=== PATIENT | female | born 1965 | race Caucasian/White ===

== ENCOUNTER 2025-06-26 12:54 | Outpatient (CLI) | payer OTHER, SELFPAY ==
--- OUTSIDE RECORDS SUMMARY | 2025-06-26 13:08 | XMS_ITS | Encounter Summary ---
Author Organization [facility] Address [address] [place] [address] Care Team Providers Care Negative Developer Name Role Phone Yadira Baptiste MD Primary Care Provider [phone] Encounter Details Date Type Department Care Team (Latest Contact Info) Description 01/02/2009 Outpatient Historical [facility] Dieudonne Colon MD [address] [place] [address] Cholecystitis, Unspecified Social History Tobacco Use Types Packs/Day Years Used Date Smoking Tobacco: Never Assessed Comments Unknown Sex and Gender Information Value Date Recorded Sex Assigned at Not on file Legal Sex Female 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 CARETAKER Gender Identity Not on file Sexual Orientation Not on file documented as of this encounter Plan of Treatment Upcoming Encounters Date Type Department Care Team (Late st Contact Info) Description 07/25/2025 1:00 PM CDT Appointment [facility] Laboratory Services [facility] [address] [place] [address] 07/25/2025 2:00 PM CDT Office Visit [facility] Oncology and Hematology [address] [place] [place] [address] Ramesh Dumas MD [address] [place] [address] documented as of this encounter Procedures Procedure Name Priority Date/Time Associated Diagnosis Comments PATHOLOGY Routine 01/03/2009 9:46 AM CAMPGROUND CARETAKER POC GLUCOSE Routine 01/03/2009 7:05 AM CAMPGROUND CARETAKER documented in this encounter Results * PATHOLOGY (01/03/2009 9:46 AM CAMPGROUND CARETAKER) FINAL REPORT [facility] [address] [place], [place] [address] Patient: RANDY LANDIS : 1965 Procedure Date: 01/03/2009 Accession Date: 01/03/2009 Case No: [id number] Ordering Dr: DIEUDONNE COLON Case types AW, BW, FW, NW and SH are performed by [facility] [place] [place], [place] SURGICAL PATHOLOGY & NON-GYNECOLOGIC CYTOPATHOLOGY REPORT DIAGNOSIS GALLBLADDER, LAPAROSCOPIC CHOLECYSTECTOMY: - LITHIASIS. - CHRONIC INFLAMMATION AND REACTIVE CHANGES. - CHOLESTEROLOSIS. Specimen Description: Gallbladder. Operative Procedure: Laparoscopic cholecystectomy. Patient Information/Histor y/Diagnosis: Biliary colic with gallstones. Gross: Received in a single container labeled Randy Landis., gallbladder is a 6.0 x 3.0 x 1.2-cm intact gallbladder with a cystic duct that is 0.2 cm in diameter. The serosa is blanco-pink and unremarkable. The lumen contains a 0.7 x 0.5 x 0.3-cm dark brown cholelith. The mucosa is blanco and velvety with diffuse yellow granularity. The wall is friable and averages 0.[address] Sql Developer sections, including the cystic duct margins, are submitted in cassette A1. LWL/PJS 01.04.2009 05:46 am Microscopic: Received are slides labeled [id number]. The gallbladder epithelium is intact and mildly reactive in appearance. Cholesterolosis is present. There are patchy, subepithelial infiltrates of chronic inflammatory cells. Foci of subepithelial fibrosis are also noted. BRIDGER/LONI 01.04.2009 02:05 pm Staging Form: No. ELECTRONIC SIGNATURE FOR OTONIEL VÁZQUEZ M.D.- 01/04/09 03:46 pm INTERFACE SYSTEM 01/03/2009 9:46 AM CAMPGROUND CARETAKER us Dieudonne Colon MD PATHOLOGY/CYTOLOGY ORDERABLES Fi nal Result Performing Organization Address [facility] de Phone Number INTERFACE SYSTEM Refer to clinic/hospital department * (ABNORMAL) POC GLUCOSE (01/03/2009 7:05 AM CAMPGROUND CARETAKER) GLUCOSE POC 140(H) 65 - 99 mg/dL [facility] Venous blood specimen (specimen) 01/03/2009 7:05 AM CAMPGROUND CARETAKER 01/03/2009 7:05 AM CAMPGROUND CARETAKER Dieudonne Colon MD POINT OF CARE TESTING Final Resu lt Performing Organization Address [facility] de Phone Number INTERFACE SYSTEM Refer to clinic/hospital department [facility] CLIA# [id number] [address] [place] [address] documented in this encounter Visit Diagnoses Diagnosis Cholecystitis, unspecified documented in this encounter Additional Health Concerns Infection Onset Date Last Indicated Resolved Time R/O GI Pathogen 05/30/2025 05/30/2025 05/30/2025 6 :07 PM CDT R/O C. diff 05/30/2025 05/30/2025 05/30/2025 2:03 PM CDT documented as of this encounter Care Teams Negative Developer Relationship Specialty Start Date End Date Yadira Baptiste MD [address] [place] [address] PCP - General Family Practice 05/30/25 documented as of this encounter
--- OUTSIDE RECORDS SUMMARY | 2025-06-26 13:08 | XMS_ITS | Encounter Summary ---
Author Organization [facility] Address [address] [place] [address] Care Team Providers Care Lead Injection Mold Technician Name Role Phone [place] Primary Care Provider [phone] Encounter Details Date Type Department Care Team (Late st Contact Info) Description 04/27/2015 Orders Only [facility] Radiology [address] [place] [address] System, Provider Not In, [address] [place] [address] Social History Tobacco Use Types Packs/Day Years Used Date Smoking Tobacco: Never Assessed Comments Unknown Sex and Gender Information Value Date Recorded Sex Assigned at Not on file Legal Sex Female 5:23 PM CDT Gender Identity Not on file Sexual Orientation Not on file documented as of this encounter Plan of Treatment Upcoming Encounters Date Type Department Care Team (Late st Contact Info) Description 08/21/2025 1:00 PM CDT Office Visit [facility] [address] [place] [address] Gila Hills FNP [address] [place] [address] documented as of this encounter Procedures Procedure Name Priority Date/Time Associated Diagnosis Comments OUTSIDE IMAGES 04/27/2015 8:18 AM CDT documented in this encounter Results * Outside Images (04/27/2015 8:18 AM CDT) Anatomical Region Laterality Modality N/A Radiographic Olinda ging 04/27/2015 8:18 AM CDT Narrative 04/27/2015 8:18 AM CDT Historic images from [facility] exist and can be viewed by using the hyperlink to access [facility] pacs: HIP R Procedure Note System, Provider Not In - 07/02/2019 Historic images from [facility] exist and can be viewed byusing the hyperlink to access [facility] pacs: HIP R us Provider Not In System MD [facility] Final Result documented in this encounter Visit Diagnoses Not on filedocumented in this encounter Care Teams Lead Injection Mold Technician Relationship Specialty Start Date End Date Gila Hills FNP [address] [place] [facility] [place] [address] PCP - General Family Medicine 06/17/19 documented as of this encounter
--- OUTSIDE RECORDS SUMMARY | 2025-06-26 13:08 | XMS_ITS | Encounter Summary ---
Author Organization [facility] Address [address] [place] [address] Care Team Providers Care Traffic Circuit Engineer Name Role Phone Gabriele Wyatt MD Primary Care Provider [phone] Teresa Vasquez MD Primary Care Provider [phone] Yadira Baptiste MD Primary Care Provider [phone] Encounter Details Date Type Department Care Team (Late st Contact Info) Description 10/30/2011 [facility] Visit [facility]TERNAL [facility] [place] [address] [place] [address] Social History Tobacco Use Types Packs/Day Years Used Date Smoking Tobacco: Never Smokeless Tobacco: Never Alcohol Use Standard Drinks/Week Comments Yes 0 (1 standard drink = 0.6 oz pur e alcohol) Rare Comments No Sex and Gender Information Value Date Recorded Sex Assigned at Not on file Legal Sex Female 11:33 AM AUTO DAMAGE TRAINEE Gender Identity Not on file Sexual Orientation Not on file documented as of this encounter Plan of Treatment Not on file documented as of this encounter Visit Diagnoses Not on filedocumented in this encounter Additional Health Concerns Infection Onset Date Last Indicated Resolved Time C DIFF 06/16/2011 06/16/2011 12/14/2020 10:3 8 AM AUTO DAMAGE TRAINEE C Diff Hx 12/14/2020 12/14/2020 documented as of this encounter Care Teams Traffic Circuit Engineer Relationship Specialty Start Date End Date Gabriele Wyatt MD [address] [address] PCP - General 11/18/10 08/25/16 Teresa Vasquez MD [address] [facility], [id number] PCP - General Family Medicine 08/26/16 11/25/20 Yadira Baptiste MD [address] [place] [address] PCP - General Family Medicine 11/26/20 documented as of this encounter
--- OUTSIDE RECORDS SUMMARY | 2025-06-26 13:08 | XMS_ITS | Clinical Summary ---
Author Organization [facility] Address [address] [place] [address] Care Team Providers Care Act Tutor Name Role Phone Yadira Baptiste MD Primary Care Provider [phone] Source Comments [facility],non-owned Affiliates and Associated Physician Practices is amultiple site organization consisting of ambulatory clinics and hospital sitesin [place], [place], [place] and [place]. This disclosure is being madepursuant to the Care Everywhere program and may not contain all information available regarding this patient. Last updated 18.[facility] Allergies Active Allergy Reactions Criticality Noted Date Comments Adhesive Sensitivity Rash 05/02/2010 Plastic tape/ Paper tape is OK [place] Diarrhea 05/02/2010 Doxycycline Nausea and/or Vomiting 12/31/2018 Exenatide Diarrhea 05/02/2010 Loperamide Hcl Rash Low 06/13/2011 Pt stated that imodium gave her burning rash lower abdomen. Sitagliptin Phosphate Diarrhea 05/02/2010 Loperamide Hcl Rash Medium 06/13/2011 Pt stated that imodium gave her burning rash lower abdomen. Metformin Diarrhea 05/02/2010 Sitagliptin Diarrhea 05/02/2010 Tramadol Dizziness 10/11/2019 Medications * Be aware that medications may not be up to date on this document. Alwaysverify current medications with the patient. Cholecalciferol (VITAMIN D) 1000 UNIT capsule Take 1,000 Units by mouth once daily. Active acetaminophen (TYLENOL) 325 MG tablet Take 2 Tabs by mouth every 4 hours as needed for Pain. Maximum allowable Acetaminophen amount = 4 Grams (4000 mg) / 24 hours. 200 1 Active PATADAY 0.2 % ophthalmic solution once daily 6 Active Collagen Hydrolysate POWD Use once daily Activ e fluticasone propionate (FLONASE) 50 MCG/ACT nasal spray 1 Active levothyroxine (SYNTHROID) 175 MCG tablet 1 Active spironolactone (ALDACTONE) 25 MG tablet 1 Active Collagen Hydrolysate POWD Active multivitamin daily tablet Take 1 tablet by mouth daily with food Active acetaminophen (TYLENOL) 325 MG tablet Take 2 (two) tablets by mouth every 6 hours as needed for Pain Maximum allowable Acetaminophen amount = 4 Grams (4000 mg) / 24 hours. 30 tablet 1 Active ibuprofen (MOTRIN) 600 MG tablet Take 1 (one) tablet by mouth every 6 hours as needed for Pain 30 tablet 1 Active oxyCODONE, immediate release, (ROXICODONE) 5 MG tablet Take 1 (one) tablet by mouth every 6 hours as needed for Pain 12 tablet 1 Active senna-docusate (SENOKOT-S) 8.6-50 MG tablet Take 1 (one) tablet by mouth 2 times daily as needed for Constipation 30 tablet 1 Active Active Problems Problem Noted Date Diagnosed Date Clostridium difficile diarrhea 06/13/2011 Preoperative examination 10/22/2010 Morbid obesity 10/15/2010 Preop testing 10/15/2010 Type II or unspecified type diabetes mellitus without mention of complication, not stated as uncontrolled 10/15/2010 Hypercholesterolemia 10/15/2010 [place] (dyspnea on exertion) 10/15/2010 Pain in joint, multiple sites 10/15/2010 Hypothyroidism 10/15/2010 Immunizations Immunization Administration Dates Next Due INFLUENZA VACCINE 10/24/2010 Family History Medical History Relation Name Comments Cancer Father Diabetes Father Hypercholesterolemia Father Hypertension Father Relation Name Status Comments Father Social History Tobacco Use Types Packs/Day Years Used Date Smoking Tobacco: Never Smokeless Tobacco: Never Alcohol Use Standard Drinks/Week Comments Yes 0 (1 standard drink = 0.6 oz pur e alcohol) Rare Comments No Sex and Gender Information Value Date Recorded Sex Assigned at Not on file Legal Sex Female 11:33 AM FINANCIAL 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 Gender Identity Not on file Sexual Orientation Not on file 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 Not on file Not on file Last Filed Vital Signs Vital Sign Reading Time Taken Comments Blood Pressure 110/60 12/27/2020 9:02 AM FINANCIAL SECRETARY Pulse 52 12/27/2020 9:02 AM FINANCIAL SECRETARY Temperature 35.8 C (96.5 F) 12/27/2020 9:02 AM FINANCIAL SECRETARY Respiratory Rate 14 12/14/2020 9:26 AM FINANCIAL SECRETARY Oxygen Saturation 98% 12/27/2020 9:02 AM FINANCIAL SECRETARY Inhaled Oxygen Concentration - - Weight 93.9 kg (207 lb) 12/27/2020 9:02 AM FINANCIAL SECRETARY Height 172.7 cm (5' 8) 12/14/2020 5:59 AM FINANCIAL SECRETARY Body Mass Index 31.47 12/14/2020 5:59 AM FINANCIAL SECRETARY Plan of Treatment Health Maintenance Due Date Last Done Comments COLOGUARD (AGES 45-75) - COLON CA SCREENING 1964 COLON MONITORING 1964 COLONOSCOPY - COLON CA SCREENING 1964 CT COLONOGRAPHY - COLON CA SCREENING 1964 Colorectal Cancer Screening 1964 FIT - COLON CA SCREENING 1964 FLEX SIG - COLON CA SCREENING 1964 MAMMOGRAM 1964 HIV SCREENING 02/20/1979 HEPATITIS C SCREENING 02/16/1982 DTAP/TDAP/TD VACCINES (1 - Tdap) 02/20/1983 DIABETES-STATIN 2004 DIABETES-SERUM CREATININE 06/13/20122010, 06/12/2011, 12/31/2010, Additional history exists PNEUMOCOCCAL VACCINE 50+ (1 of 1 - PCV) 02/20/2014 ZOSTER VACCINE (1 of 2) 02/20/2014 DIABETES-FOOT EXAM WITH MONOFILAMENT 11/26/2020 DIABETES-HGB A1C 11/26/2020 COVID-19 VACCINE (1 - season) 2024 DEPRESSION SCREENING 11/02/2024 DIABETES - URINE PROTEIN SCREENING 11/02/2024 INFLUENZA VACCINE (#1) 2025 10/24/2010 Respiratory Syncytial Virus (RSV) Vaccine Pt: or over 60 yrs (1 - 1-dose 75+ series) 02/20/2039 HEPATITIS B VACCINE Aged Out No longe r eligible based on patient's age to complete this topic HIB VACCINE Aged Out No longer eligi ble based on patient's age to complete this topic HPV VACCINE Aged Out No longer eligi ble based on patient's age to complete this topic MENINGOCOCCAL (Group B) VACCINE SHARED DECISION-MAKING Aged Out No longer eligible based on patient's age to complete this topic MENINGOCOCCAL GROUPS A/C/Y/W VACCINE Aged Out No longer eligible based on patient's age to complete this topic Procedures Procedure Name Priority Date/Time Associated Diagnosis Comments BASIC METABOLIC PANEL (CALCIUM TOTAL) Routine 06/13/2011 4:45 AM CDT from Last 3 Months or Most Recently Relevant to Health Maintenance Results * (ABNORMAL) BASIC METABOLIC PANEL (CALCIUM TOTAL) (06/13/2011 4:45 AM CDT) BUN 10 7.0 - 17.0 mg/dl [facility] Sodium 138 137 - 145 mmol/L [facility] Potassium 3.8 3.6 - 5.0 mmol/L [facility] Chloride 109(H) 98.0 - 107.0 mmol/L [facility] CO2 26 22.0 - 30.0 mEq/L [facility] Anion Gap 3.3 [facility] Glucose 72 70 - 105 mg/dl [facility] Creatinine 0.5(L) 0.52 - 1.05 mg/dl [facility] Calcium 8.1(DL) 8.4 - 10.2 mg/dl [facility] eGFR by MDRD 132.25 mL/min/1.7 3m2 [facility] BLOOD SPECIMEN / Unknown 06/13/2011 4:45 AM CDT 06/13/2011 5:25 AM CDT us Aiden Kapoor DO LAB - CHEMISTRY ORDERABLES Final Result [facility] [address] [place] [address] from Last 3 Months or Most Recently Relevant to Health Maintenance Additional Health Concerns Infection Onset Date Last Indicated C Diff Hx 12/14/2020 12/14/2020 Insurance [facility] Address: [facility] [address] [place] [address] Advance Directives * FULL RESUSCITATION (Latest Code Status on File) Date Activated Date Inactivated Comments 06/12/2011 4:00 PM 06/15/2011 1:29 AM * Full Code Date Activated Date Inactivated Comments 10/22/2010 5:23 PM 10/25/2010 11:15 PM Care Teams Act Tutor Relationship Specialty Start Date End Date Yadira Baptiste MD [address] [place] [address] PCP - General Family Medicine 11/26/20
--- OUTSIDE RECORDS SUMMARY | 2025-06-26 13:08 | XMS_ITS | Clinical Summary ---
Author Organization [facility] Address [address] [facility] [address] [place] [address] Phone Care Team Providers Care Division Operations Manager Name Role Phone Yadira Baptiste MD Primary Care Provider [phone] Allergies Active Allergy Reactions Criticality Noted Date Comments Adhesive Hives High 05/02/2010 Plastic tape/ Paper tape is OK Adhesive Tape-Silicones Unknown 09/06/2024 Doxycycline Nausea and Vomiting Low 12/31/2018 Exenatide Diarrhea Low 05/02/2010 Loperamide Hcl Rash Low 06/13/2011 Pt stated that imodium gave her burning rash lower abdomen. Macrolide Antibiotics Unknown 09/06/2024 Metformin Diarrhea Low 05/02/2010 Sitagliptin Phosphate Diarrhea Low 05/02/2010 Tramadol Dizziness Low 10/11/2019 Medications ergocalciferol (VITAMIN D2) 50,000 unit capsule Take 50,000 Units by mouth. 08/19/2024 Active estradioL (ESTRACE) 1 mg tablet Take 1.5 mg by mouth daily. 08/19/2024 Active levothyroxine 100 mcg tablet Take 100 mcg by mouth daily. 06/14/2024 Active montelukast (SINGULAIR) 10 mg tablet Take 10 mg by mouth daily at bedtime. Active multivitamins with minerals (Daily Multivitamin-Mi nerals) Tablet Take 1 Tablet by mouth daily. Active HYDROcodone-tamy taminophen (NORCO) 5-325 mg tabletIndicatio ns:Pelvic floor dysfunction,Acu te diarrhea Take 1 Tablet by mouth every 6 hours as needed for Pain. Max Daily Amount: 4 Tablets 12 Tablet 05/11/2025 Active phenazopyridine 200 mg tablet Take 1 Tablet (200 mg) by mouth 3 times daily as needed for Pain. 6 Tablet 05/11/2025 Active Active Problems Problem Noted Date Diagnosed Date Iron deficiency anemia ranjith royal to inadequate dietary iron intake 10/27/2024 Bariatric surgery status 09/14/2024 Irritable bowel syndrome wit h both constipation and diarrhea 05/04/2019 Hypothyroidism 10/15/2010 Resolved Problems Problem Noted Date Diagnosed Date Resolved Date Wasp sting 07/03/2024 09/06/2024 Contact dermatitis due to poison ady 02/22/2024 09/06/2024 Overview (09/06/2024): Kenalog 40mg IM x1 here Tapering dose of prednisone to start tomorrow Zyrtec AM. Benadryl PM Avoid scratching Return if symptoms do not improve Exposure to 2018 novel coronavirus 12/10/2020 09/06/2024 Acute non intractable tension-type headache 05/04/2019 09/06/2024 Elevated hemoglobin 05/04/2019 09/06/20 24 Hypervitaminosis 05/04/2019 09/06/2024 Encounters Date Type Department Care Team Description 06/23/2025 6:58 AM CDT - 06/23/2025 11:59 PM CDT Hospital Encounter [facility] Ultrasound [address] [place] [address] Sanket Blakely MD Arrived Discharge Disposition: Home or Self Care 06/19/2025 Transcribe Orders Central Test Scheduling [address] [place] [address] Sanket Blakely MD 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) 06/07/2025 External Device Data [facility] ABSTRACTION Provider, Abstract 06/06/2025 External Device Data [facility] ABSTRACTION Provider, Abstract 06/06/2025 External Device Data [facility] ABSTRACTION Provider, Abstract 05/31/[address] [facility] Gastroenterology [place] [address] [address] Provider, Abstract 05/30/2025 1:49 PM CDT - 05/30/2025 5:03 PM CDT Emergency [facility] Emergency Department [address] [place] [phone] Bo Paula DO Abdominal pain, acute, left lower quadrant (Primary Dx); Acute diarrhea Discharge Disposition: Home or Self Care 05/30/2025 Travel 05/19/2025 Telephone [facility] UROLOGY [place] [address] [address] [place] [phone] Provider, Abstract Needs Appointment 05/17/2025 External Device Data ST[facility] ABSTRACTION Provider, Abstract 05/17/2025 External Device Data [facility] ABSTRACTION Provider, Abstract 05/17/2025 External Device Data [facility] ABSTRACTION Provider, Abstract 05/17/2025 External Device Data [facility] ABSTRACTION Provider, Abstract 05/16/2025 External Device Data ST[facility] ABSTRACTION Provider, Abstract 05/13/2025 Results Follow-Up [facility] Emergency Clinical Decision Unit [address] [place] [address] Silvia Layne PA-C URINE CULTURE 05/11/2025 4:34 PM CDT - 05/11/2025 11:48 PM CDT Emergency [facility] Emergency Department [address] [place] [address] Yaakov Otero MD Feldmeier, Michael, MD Pelvic floor dysfunction (Primary Dx); Acute diarrhea Discharge Disposition: Home or Self Care 05/11/2025 Travel 04/25/2025 External Device Data [facility] ABSTRACTION Provider, Abstract 03/28/2025 External Device Data [facility] ABSTRACTION Provider, Abstract from Last 3 Months Family History * Patient is adopted Medical History Relation Name Comments Colon Cancer Father Breast Cancer Paternal Aunt Relation Name Status Comments Father Paternal Aunt Social History Tobacco Use Types Packs/Day Years Used Date Smoking Tobacco: Never Tobacco Cessation:Counseling Given: Not Answered Feeling Safe Answer Date Recorded Are you in a relationship wi th someone who hurts you emotionally and/or physically? No 05/30/2025 Comments No Sex and Gender Information Value Date Recorded Sex Assigned at Not on file Legal Sex Female 3:42 AM PRIVACY OFFICER Gender Identity Not on file Sexual Orientation Not on file Last Filed Vital Signs Vital Sign Reading Time Taken Comments Blood Pressure 123/59 05/30/2025 4:30 PM CDT Pulse 53 05/30/2025 4:45 PM CDT Temperature 36.4 C (97.6 F) 05/30/2025 1:53 PM CDT Respiratory Rate 21 05/30/2025 4:45 PM CDT Oxygen Saturation 98% 05/30/2025 4:45 PM CDT Inhaled Oxygen Concentration - - Weight 83.9 kg (185 lb) 05/30/2025 1:53 PM CDT Height 172.7 cm (5' 8) 05/30/2025 1:53 PM CDT Body Mass Index 28.13 05/30/2025 1:53 PM CDT Plan of Treatment Upcoming Encounters Date Type Department Care Team (Late st Contact Info) Description 07/25/2025 1:00 PM CDT Appointment [facility] Laboratory Services [facility] [address] [facility] [place] [phone] 07/25/2025 2:00 PM CDT Office Visit [facility] Oncology and Hematology [address] [facility] [place] [phone] Ramesh Dumas MD [address] [place] [phone] Health Maintenance Due Date Last Done Comments DIABETES ANNUAL FOOT EXAM 02/20/1982 DIABETES ANNUAL RETINAL EXAM 02/20/1982 DIABETES MICROALBUMIN ANNUAL SCREEN 02/20/1982 LDL CHOLESTEROL ANNUAL 02/20/1982 COLORECTAL SCREENING 02/20/2009 Colorectal Cancer Screening 02/20/2009 FIT-DNA Q 3 years 02/20/2009 FIT/FOBT Q 1 year 02/20/2009 Flex Sig/CT Colonography Q 5 years 02/20/2009 ZOSTER VACCINE (1 of 2) 02/20/2014 COVID-19 Vaccine (2023-2 5 season) 2024 09/11/2022, 09/11/2021, 12/06/2020, Additional history exists INFLUENZA VACCINE (#1) 2025 5, 09/11/2022, 09/11/2021 BREAST CANCER SCREENING 10/12/2025 10/12/20 24, 04/03/2023, 04/03/2023, Additional history exists DIABETES HBA1C Q 6 MONTHS 11/17/2025 05/17/2025 DTAP/TDAP/TD VACCINES (3 - T d or Tdap) 08/25/2030 08/25/2020, 05/18/2013 RSV VACCINE (60+ or ) (1 - 1-dose 75+ series) 02/20/2039 Procedures Procedure Name Priority Date/Time Associated Diagnosis Comments US PELVIS COMPLETE Routine 06/23/2025 8: 25 AM CDT Prolapse of female pelvic organs GI PATHOGEN PCR PANEL Stat 05/30/2025 4:[address] ABDOMEN PELVIS W CONTRAST Stat 05/30/2025 3:13 PM CDT CBC WITH DIFFERENTIAL Stat 05/30/2025 2:39 PM CDT LIPASE Stat 05/30/2025 2:39 PM CDT COMPREHENSIVE METABOLIC PANEL Stat 05/30/2025 2:39 PM CDT EXTRA TUBE (URINE SANTIAGO) Stat 05/30/2025 2:15 PM CDT URINALYSIS W/REFLEX MICROSCOPIC Stat 05/30/2025 2:15 PM CDT URINE CULTURE Stat 05/30/2025 2:[address] ABDOMEN PELVIS W CONTRAST Stat 05/11/2025 9:17 PM CDT LIPASE Stat 05/11/2025 5:16 PM CDT COMPREHENSIVE METABOLIC PANEL Stat 05/11/2025 5:16 PM CDT CBC WITH DIFFERENTIAL Stat 05/11/2025 5:09 PM CDT URINALYSIS W/REFLEX MICROSCOPIC Stat 05/11/2025 3:18 PM CDT URINE CULTURE Stat 05/11/2025 3:18 PM CDT MAMMO 3D JENA SCREEN BILAT W OR WO CAD Routine 10/12/2024 2:35 PM PRIVACY OFFICER Encounter for screening mammogram for malignant neoplasm of breast from Last 3 Months or Most Recently Relevant to Health Maintenance Results * US PELVIS COMPLETE (06/23/2025 8:25 AM CDT) Anatomical Region Laterality Modality Pelvis Ultrasound Impressions 06/23/2025 10:29 AM CDT No discrete findings of pelvic organ prolapse. Prior hysterectomy. The ovaries are not visualized. Electronically signed by: FREDDY MCKEON D.O. Date: 06/23/2025 Time: 10: Narrative 06/23/2025 10:29 AM CDT EXAM: PELVIC ULTRASOUND HISTORY: Prolapse of female pelvic organs TECHNIQUE: Sonography of the pelvis was performed by transabdominal technique. Color Doppler images were performed. Images were obtained and stored in a permanent archive. COMPARISON: 05/30/2025 FINDINGS: Uterus: Hysterectomy The ovaries are not visualized. Pelvic free fluid: None. Procedure Note Freddy Mckeon, DO - 06/23/2025 EXAM: PELVIC ULTRASOUND HISTORY: Prolapse of female pelvic organs TECHNIQUE: Sonography of the pelvis was performed by transabdominaltechnique. Color Doppler images were performed. Images were obtained and stored in a permanent archive. COMPARISON: 05/30/2025 FINDINGS: Uterus: Hysterectomy The ovaries are not visualized. Pelvic free fluid: None. IMPRESSION: No discrete findings of pelvic organ prolapse. Prior hysterectomy. The ovaries are not visualized. Electronically signed by: FREDDY MCKEON D.O. Date: 06/23/2025 Time: 10:18 Sanket Blakely MD US ORDERABLES Final Result * GI PATHOGEN PCR PANEL (05/30/2025 4:43 PM CDT) GI Pathogen PCR panel NOT DETECTED No nucleic acids detected. 05/30/2025 6:07 PM CDT [facility] Stool STOOL SPECIMEN / Unknown 05/30/2025 4:43 PM CDT 05/30/2025 4:43 PM CDT Narrative [facility] - 05/30/2025 6:07 PM CDT The Film Array GI Panel is a multiplexed nucleic acid detection test for 22 targets of bacteria, viruses, and parasites in stool that cause infectious diarrhea. Bacteria: Campylobacter C. difficile Plesiomonas shigelloides Salmonella Vibrio Vibrio cholerae Yersinia enterocolitica Enteroaggregative E. Coli (EAEC) Enteropathogenic E. Coli (EPEC) Enterotoxigenic E. Coli (ETEC) Shiga-like toxin-producing E. Coli (STEC) E. Coli O157 Shigella/Enteroinvasive E. Coli (EIEC) Viruses: Adenovirus F 40/41 Astrovirus Norovirus GI/GII Rotavirus A Sapovirus Parasites: Cryptosporidium Cyclospora cayetanensis Entamoeba histolytica Giardia duodenalis Bo Paula DO MICROBIOLOGY - GENERAL ORDERABLES Final Result [facility] [id number] [address] [place] [phone] * CT ABDOMEN PELVIS W CONTRAST (05/30/2025 3:13 PM CDT) Only the most recent of2 resultswithin the time period is included. Anatomical Region Laterality Modality Abdomen Computed Tomogra phy 05/30/2025 3:03 PM CDT Impressions 05/30/2025 3:29 PM CDT No acute abdominal or pelvic process. No acute appendicitis. Stable mild intrahepatic biliary ductal dilatation status post cholecystectomy. All CT scans are performed using dose optimization techniques as appropriate to the performed exam and include at least one of the following: Automated exposure control, adjustment of the mA and/or kV according to size, and the use of iterative reconstruction technique. Electronically signed by: BETSEY HUMMEL M.D. Date: 05/30/2025 Time: 15:19 Narrative 05/30/2025 3:29 PM CDT EXAM: CT ABDOMEN AND PELVIS WITH CONTRAST. HISTORY: Bright abdomen and right lower quadrant pain. COMPARISON: November 2020 CT abdomen pelvis. TECHNIQUE: Axial CT imaging of the abdomen and pelvis was performed with IV contrast. Sagittal and coronal reformations were performed. FINDINGS: The lung bases are clear. Small hiatal hernia and postoperative gastric bypass. The liver enhanes uniformly with stable mild intrahepatic biliary ductal dilatation. The gallbladder is surgically absent. The spleen, pancreas and adrenal glands are within normal limits. No mesenteric or retroperitoneal lymphadenopathy is seen. The right and left kidney shows normal enhancement with low density cortical cysts. There is no hydronephrosis or perinephric fat stranding. The aorta is normal in course and caliber. Fat containing umbilical hernia. The appendix is normal. Scattered colonic diverticula with no adjacent inflammatory process. No pathologically dilated loops of large or small bowel. There is no free air or fluid seen in the abdomen or pelvis. The urinary bladder is unremarkable. The uterus is surgically absent. Age appropriate osseous findings. Procedure Note Betsey Hummel MD - 05/30/2025 EXAM: CT ABDOMEN AND PELVIS WITH CONTRAST. HISTORY: Bright abdomen and right lower quadrant pain. COMPARISON: November 2020 CT abdomen pelvis. TECHNIQUE: Axial CT imaging of the abdomen and pelvis was performed withIV contrast. Sagittal and coronal reformations were performed. FINDINGS: The lung bases are clear. Small hiatal hernia and postoperative gastricbypass. The liver enhanes uniformly with stable mild intrahepatic biliary ductaldilatation. The gallbladder is surgically absent. The spleen, pancreas and adrenal glands are withinnormal limits. No mesenteric or retroperitoneal lymphadenopathy is seen. The right and left kidney shows normal enhancement with low densitycortical cysts. There is no hydronephrosis or perinephric fat stranding. The aorta is normal in course and caliber. Fat containing umbilicalhernia. The appendix is normal. Scattered colonic diverticula with no adjacentinflammatory process. No pathologically dilated loops of large or small bowel. There is no freeair or fluid seen in the abdomen or pelvis. The urinary bladder is unremarkable. The uterus is surgicallyabsent. Age appropriate osseous findings. IMPRESSION: No acute abdominal or pelvic process. No acute appendicitis. Stable mild intrahepatic biliary ductal dilatation status postcholecystectomy. All CT scans are performed using dose optimization techniques asappropriate to the performed exam and include at least one of the following: Automated exposure control,adjustment of the mA and/or kV according to size, and the use of iterative reconstruction technique. Electronically signed by: BETSEY HUMMEL M.D. Date: 05/30/2025 Time: 15:[address] ORDERABLES Final R esult * CBC WITH DIFFERENTIAL (05/30/2025 2:39 PM CDT) Only the most recent of2 resultswithin the time period is included. WBC 5.7 3.5 - 11.0 K/uL 05/30/2025 2:[address] [facility] RBC 4.75 3.80 - 5.00 M/uL 05/30/2025 2:[address] [facility] HEMOGLOBIN 14.5 11.7 - 15.7 g/dL 05/30/2025 2:[address] [facility] HEMATOCRIT 42.1 35.0 - 47.0 % 05/30/2025 2:[address] [facility] MCV 88.5 80.8 - 100.0 fL 05/30/2025 2:[address] [facility] MCH 30.5 26.4 - 34.0 pg 05/30/2025 2:[address] [facility] MCHC 34.5 31.4 - 36.3 g/dL 05/30/2025 2:47 PM [facility] R[facility] 12.8 11.0 - 15.0 % 05/30/2025 2:47 PM CDT [facility] PLATELETS 213 150 - 450 K/uL 05/30/2025 2:47 PM CDT [facility] MPV 9.0 7.5 - 11.2 fL 05/30/2025 2:47 PM CDT [facility] NEUTROPHILS 58 50 - 75 % 05/30/2025 2:47 PM CDT [facility] LYMPHOCYTES 33 19 - 48 % 05/30/2025 2:47 PM CDT [facility] MONOCYTES 7 0 - 10 % 05/30/2025 2:47 PM CDT [facility] EOSINOPHILS 2 0 - 6 % 05/30/2025 2:47 PM CDT [facility] BASOPHILS 1 0 - 2 % 05/30/2025 2:47 PM CDT [facility] NEUTROPHIL ABSOLUTE 3.34 >=0.50 K/uL 05/30/2025 2:47 PM CDT [facility] LYMPHOCYTE ABSOLUTE 1.87 K/uL 05/30/2025 2:47 PM CDT [facility] MONOCYTE ABSOLUTE 0.39 K/uL 05/30/2025 2:47 PM CDT [facility] EOSINOPHIL ABSOLUTE 0.09 K/uL 05/30/2025 2:47 PM CDT [facility] BASOPHILS ABSOLUTE 0.03 K/uL 05/30/2025 2:47 PM CDT [facility] Blood Venipuncture / Unknown 05/30/2025 2:39 PM CDT 05/30/2025 2:39 PM CDT Bo Paula DO HEMATOLOGY ORDERABLES F inal Result [facility] [id number] [address] [place] [phone] * LIPASE (05/30/2025 2:39 PM CDT) Only the most recent of2 resultswithin the time period is included. LIPASE 32 13 - 60 U/L 05/30/2025 2:57 PM T [facility] Blood Venipuncture / Unknown 05/30/2025 2:39 PM CDT 05/30/2025 2:39 PM CDT Bo Paula DO CHEMISTRY ORDERABLES Fi nal Result [facility] [id number] [address] [place] [phone] * (ABNORMAL) COMPREHENSIVE METABOLIC PANEL (05/30/2025 2:39 PM CDT) Only the most recent of2 resultswithin the time period is included. Pathologist [facility] SODIUM 141 136 - 145 mmol/L 05/30/2025 2:57 PM T [facility] POTASSIUM 3.9 3.2 - 4.9 mmol/L 05/30/2025 2:57 PM T [facility] CHLORIDE 110 98 - 111 mmol/L 05/30/2025 2:57 PM T [facility] CO2 25 22 - 29 mmol/L 05/30/2025 2:57 PM T [facility] CALCIUM 8.7 8.4 - 10.5 mg/dL 05/30/2025 2:57 PM T [facility] BUN 10 6 - 24 mg/dL 05/30/2025 2:57 PM [facility] CREATININE 0.60 0.50 - 1.20 mg/dL 05/30/2025 2:57 PM [facility] GLUCOSE 98 70 - 115 mg/dL 05/30/2025 2:57 PM [facility] TOTAL PROTEIN 6.2 6.0 - 8.4 g/dL 05/30/2025 2:57 PM [facility] ALBUMIN 4.2 3.5 - 5.2 g/dL 05/30/2025 2:57 PM [facility] BILIRUBIN TOTAL 0.3 0.3 - 1.2 mg/dL 05/30/2025 2:57 PM CDT [facility] ALKALINE PHOSPHATASE 84 40 - 150 U/L 05/30/2025 2:57 PM CDT [facility] AST 27 <=33 U/L 05/30/2025 2:57 PM CDT [facility] ALT 27 <=55 U/L 05/30/2025 2:57 PM CDT [facility] GFR >60 >=60 mL/min/1.7 3 sq meter 05/30/2025 2:57 PM CDT [facility] Comment:eGFR calculated with 2020 CKD-EPI equation. Vegetarian diet, extremely high or low muscle mass, and may affect results. Cystatin C with Glomerular Filtration Rate is a suitable alternative for these patients. ANION GAP 6(L) 7 - 16 mmol/L 05/30/2025 2:57 PM CDT [facility] Blood Venipuncture / Unknown 05/30/2025 2:39 PM CDT 05/30/2025 2:39 PM CDT Bo Paula DO CHEMISTRY ORDERABLES Fi nal Result Performing Organization Address [facility]/ZIP Co de Phone Number [facility] [id number] [address] [place] [phone] * EXTRA TUBE (URINE SANTIAGO) (05/30/2025 2:15 PM CDT) Urine URINE SPECIMEN OBTAINED BY CLEAN CATCH PROCEDURE / Unknown Collection / Unknown 05/30/2025 2:15 PM CDT 05/30/2025 2:17 PM CDT Bo Paula DO URINE ORDERABLES Final Result Performing Organization Address [facility]/ZIP Co de Phone Number [facility] [id number] [address] [place] [phone] * (ABNORMAL) URINALYSIS WITH REFLEX MICROSCOPIC (05/30/2025 2:15 PM CDT) Only the most recent of2 resultswithin the time period is included. COLOR UA Pale Yellow Pale to Dark Yellow 05/30/2025 2:[address] [facility] CLARITY UA Cloudy(A) Clear 05/30/2025 2:33 PM [facility] SPECIFIC GRAVITY UA 1.009 1.005 - 1.030 05/30/2025 2:33 PM T [facility] PH UA 5.5 5.0 - 9.0 05/30/2025 2:33 PM T [facility] LEUKOCYTE ESTERASE UA Negative Negative 05/30/2025 2:33 PM T [facility] NITRITE UA Negative Negative 05/30/2025 2:33 PM T [facility] PROTEIN UA Negative Negative 05/30/2025 2:33 PM T [facility] GLUCOSE UA Negative Negative 05/30/2025 2:33 PM [facility] KETONES UA Negative Negative 05/30/2025 2:33 PM [facility] UROBILINOGEN UA Normal Normal mg/dL 05/30/2025 2:33 PM [facility] BILIRUBIN UA Negative Negative 05/30/2025 2:33 PM [facility] BLOOD UA Trace(A) Negative 05/30/2025 2:[address] [facility] WBC UA 0-2 0 - 2 /hpf 05/30/2025 2:33 PM [facility] RBC UA 0-2 0 - 2 /hpf 05/30/2025 2:33 PM [facility] BACTERIA UA 1+(A) Negative /hpf 05/30/2025 2:33 PM [facility] EPITHELIAL CELLS, URINE >25(A) 0 - 5 /hpf 05/30/2025 2:33 PM [facility] Urine URINE SPECIMEN OBTAINED BY CLEAN CATCH PROCEDURE / Unknown Collection / Unknown 05/30/2025 2:15 PM CDT 05/30/2025 2:17 PM CDT Bo Paula DO URINE ORDERABLES Final Result [facility] [id number] [address] [place] [phone] * URINE CULTURE (05/30/2025 2:14 PM CDT) Only the most recent of2 resultswithin the time period is included. CULTURE Polymicrobial growth consistent with normal urethral rinku and/or colonizing bacteria 06/01/2025 7:13 AM CDT [facility] Urine URINE SPECIMEN OBTAINED BY CLEAN CATCH PROCEDURE / Unknown Collection / Unknown 05/30/2025 2:14 PM CDT 05/30/2025 2:18 PM CDT Narrative [facility] - 06/01/2025 7:13 AM CDT Growth of skin and/or urogenital rinku suggests possible improper collection. Please resubmit in clinically indicated. us Bo Paula DO MICROBIOLOGY - GENERAL ORDERABLES Final Result Performing Organization Address [facility] Co de Phone Number [facility] [id number] [address] [place] [address] [phone] * MAMMO 3D JENA SCREEN BILAT W OR WO CAD (10/12/2024 2:35 PM PRIVACY OFFICER) Anatomical Region Laterality Modality Breast Bilateral Mammography Impressions 10/12/2024 5:40 PM PRIVACY OFFICER : No mammographic evidence of malignancy. BI-RADS ASSESSMENT: 1 - Negative RECOMMENDATION: Routine annual screening mammography. Narrative 10/12/2024 5:40 PM PRIVACY OFFICER EXAM: MAMMO SCRN BILAT 3D JENA W OR WO CAD INDICATION: Screening COMPARISON: Comparison is made to previous examinations. BREAST COMPOSITION: There are scattered areas of fibroglandular density. FINDINGS: There has been no significant interval change. There are no suspicious masses, calcifications, or areas of architectural distortion. us Gila NIXP MAMMO ORDERABLES Final Result from Last 3 Months or Most Recently Relevant to Health Maintenance Insurance [facility] [id number] Care Teams Division Operations Manager Relationship Specialty Start Date End Date Yadira Baptiste MD [address] [place] [address] PCP - General Family Practice 05/30/25
--- OUTSIDE RECORDS SUMMARY | 2025-06-26 13:08 | XMS_ITS | Encounter Summary ---
Author Organization [facility] Address [address] [place] [address] [place] [address] Care Team Providers Care Hand Filer Balance Wheel Name Role Phone Gila Hills FOUNDER CEO & PRESIDENT Primary Care Provider Encounter Details Date Type Department Care Team (Late st Contact Info) Description 04/28/2017 Telephone [facility] [address] [place], [place] [address] Bhavana Polanco MD [address] [place] [address] Social History Tobacco Use Types Packs/Day Years Used Date Smoking Tobacco: Never Alcohol Use Standard Drinks/Week Comments No 0 (1 standard drink = 0.6 oz pur e alcohol) Comments Unknown Sex and Gender Information Value Date Recorded Sex Assigned at Not on file Legal Sex Female 5:23 PM CDT Gender Identity Not on file Sexual Orientation Not on file documented as of this encounter Miscellaneous Notes * Telephone Encounter - Kelly Mello RN - 04/28/2017 5:14 PM CDT Reviewed results w/. Spine normal. Hip osteopenia- stable . Recommend calcium up to 1000mg/day prefer thru diet. Calcium sheet mailed. Repeat dexa in 2yrs. Pt verbalizes understanding. Kelly Mello RN * Telephone Encounter - Oly Kennedy - 04/28/2017 2:49 PM CDT PT REQ DEXA RESULTS BEFORE END OF DAY * Telephone Encounter - Kelly Mello RN - 04/28/2017 11:15 AM CDT Will have md review, in surgery this am and call pt back w/results * Telephone Encounter - Oly Kennedy - 04/28/2017 10:07 AM CDT PT REQ DEXA RESULTS documented in this encounter Plan of Treatment Upcoming Encounters Date Type Department Care Team (Late st Contact Info) Description 08/21/2025 1:00 PM CDT [place] [facility] [place] [address] [place] [address] Gila Hills FNP [address] [place] [address] documented as of this encounter Visit Diagnoses Not on filedocumented in this encounter Care Teams Hand Filer Balance Wheel Relationship Specialty Start Date End Date Gila Hills FNP [address] [place] [address] PCP - General Family Medicine 06/17/19 documented as of this encounter
--- OUTSIDE RECORDS SUMMARY | 2025-06-26 13:08 | XMS_ITS | Encounter Summary ---
Author Organization [facility] Address [address] [place] [address] Care Team Providers Care Antenna Installer Name Role Phone Gila [place] Primary Care Provider Encounter Details Date Type Department Care Team (Late st Contact Info) Description 10/20/2019 Orders Only [address] [id number] Gila Hills FNP [address] [place], [place] [address] Cough (Primary Dx) Social History Tobacco Use Types Packs/Day Years [...] Description 08/21/2025 1:00 PM CDT Office Visit [address] [address] Gila Hills FNP [address] [place] [address] documented as of this encounter Visit Diagnoses Diagnosis Cough- Primary documented in this encounter Additional Health Concerns Health Status Noted Date Alive and well 10/11/2019 Assessment Noted Time PHQ-9 Depression Total Score: 0 05/04/20 19 9:42 AM CDT A fall risk assessment has been complete d for the patient 10/11/2019 3:44 PM 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
--- OUTSIDE RECORDS SUMMARY | 2025-06-26 13:08 | XMS_ITS | Encounter Summary ---
Author Organization [facility] Address [address] [place] [address] Care Team Providers Care Cab Supervisor Name Role Phone [place] Primary Care Provider Encounter Details Date Type Department Care Team (Late st Contact Info) Description 06/17/2019 Orders Only [address] [address] Gila Hills FNP [address] [place], [place] [address] Hordeolum, unspecified hordeolum type, unspecified laterality (Primary Dx) Social History Tobacco Use Types [...] Description 08/21/2025 1:00 PM CDT Office Visit [address] [address] Gila Hills FNP [address] [facility] [place] [address] documented as of this encounter Visit Diagnoses Diagnosis Hordeolum, unspecified hordeolum type, unspecified laterality- Primary documented in this encounter Additional Health Concerns Health Status Noted Date Alive and well 05/04/2019 Assessment Noted Time PHQ-9 Depression Total Score: 0 05/04/20 19 9:42 AM CDT documented as of this encounter Care Teams Cab Supervisor Relationship Specialty Start Date End Date Gila Hills FNP [address] [facility] [place] [address] PCP - General Family Medicine 06/17/19 documented as of this encounter
--- OUTSIDE RECORDS SUMMARY | 2025-06-26 13:08 | XMS_ITS | Clinical Summary ---
Author Organization [facility] Address [address] [place] [address] Care Team Providers Care Fig Caprifier Name Role Phone Gila Hills PROJECT ADMINISTRATIVE ASSISTANT Primary Care Provider [phone] Allergies Active Allergy Reactions Criticality Noted Date Comments Adhesive Hives 05/02/2010 Plastic tape/ Paper tape is OK Adhesive Tape-Silicones Doxycycline Nausea 12/31/2018 Exenatide Diarrhea 05/02/2010 Loperamide Hcl Rash Low 06/13/2011 Pt stated that imodium gave her burning rash lower abdomen. Metformin Diarrhea 05/02/2010 Sitagliptin Phosphate Diarrhea 05/02/2010 Tramadol Lightheadedness 10/11/2019 Medications multivitamin (THERAGRAN) tablet Take 1 tablet by mouth. Active UNABLE TO FIND Hormone pellets every 4 months Active multivitamin with minerals (Daily Multivitamin-Min erals) tablet Take 1 tablet by mouth in the morning. Active fluticasone propionate (FLONASE) 50 mcg/actuation nasal spray 1 Active ibuprofen (MOTRIN) 600 MG tablet Take 600 mg by mouth every 6 (six) hours as needed. 1 Active montelukast (SINGULAIR) 10 mg tablet Take 10 mg by mouth nightly. Active prednisoLONE acetate (PRED FORTE) 1% ophthalmic suspensionIndica tions:Dry eye Administer 1 drop into both eyes in the morning and 1 drop in the evening. 5 mL 2 4 Active estradioL (ESTRACE) 1 MG tabletIndication s:Hormone replacement therapy (HRT) Take 1.5 tablets (1.5 mg total) by mouth in the morning. 135 tablet 3 4 Active levothyroxine (SYNTHROID) 100 MCG tabletIndication s:Hypothyroidism , unspecified type Take 1 tablet (100 mcg total) by mouth every morning before breakfast. 90 tablet 3 4 Active ergocalciferol (ERGOCALCIFEROL) 1,250 mcg (50,000 unit) capsuleIndicatio ns:Hypovitaminos is D TAKE ONE CAPSULE BY MOUTH TWICE WEEKLY 26 capsule 5 Active Active Problems Problem Noted Date Diagnosed Date Contact dermatitis due to poison ady 02/22/2024 Overview (02/22/2024): Kenalog 40mg IM x1 here Tapering dose of prednisone to start tomorrow Zyrtec AM. 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/04/2019 Elevated hemoglobin 05/04/2019 Acute non intractable tension-type headache 12/2018 Irritable bowel syndrome wit h both constipation and diarrhea 05/04/2019 Hypothyroidism 10/15/2010 Resolved Problems Problem Noted Date Diagnosed Date Resolved Date Muscle spasm 05/04/2019 12/23/2023 Encounters Date Type Department Care Team Description 05/13/[address] [place] [address] Gila Hills, PROJECT ADMINISTRATIVE ASSISTANT Hormone replacement therapy (HRT) from Last 3 Months Immunizations Immunization Administration Dates Next Due Fluvirin 10/24/2010 Tdap (BOOSTRIX, ADACEL) 05/18/2013 influenza, injectable, quadr ivalent, preservative free (AFLURIA/FLUARIX/FLULAVAL/FLUZONE) 09/11/2022,09/11/2021 influenza, unspecified 10/24/2010 Family History Medical History Relation Name Comments Colon cancer Father Diabetes Father Lung cancer Maternal Grandmother Relation Name Status Comments Father Maternal Grandmother Social History Tobacco Use Types Packs/Day Years Used Date Smoking Tobacco: Never Smokeless Tobacco: Never Tobacco Cessation:Counseling Given: Not Answered Alcohol Use Standard Drinks/Week Comments No 0 (1 standard drink = 0.6 oz pur e alcohol) PHQ-2 Answer Date Recorded PHQ-2 Score 0 12/23/2023 Comments No Sex and Gender Information Value Date Recorded Sex Assigned at Not on file Legal Sex Female 5:23 PM CDT Gender Identity Not on file Sexual Orientation Not on file Last Filed Vital Signs Vital Sign Reading Time Taken Comments Blood Pressure 119/78 08/19/2024 1:57 PM CDT Pulse 68 08/19/2024 1:57 PM CDT Temperature 36.6 C (97.8 F) 03/15/2024 8:34 AM CDT Respiratory Rate 18 08/19/2024 1:57 PM CDT Oxygen Saturation 94% 03/15/2024 10:45 AM CDT Inhaled Oxygen Concentration - - Weight 84.4 kg (186 lb) 08/19/2024 1:57 PM CDT Height 172.7 cm (5' 8) 08/19/2024 1:57 PM CDT Body Mass Index 28.28 08/19/2024 1:57 PM CDT Plan of Treatment Upcoming Encounters Date Type Department Care Team (Late st Contact Info) Description 08/21/2025 1:00 PM CDT Office Visit [facility] [place] [address] [place] [address] Gila Hills, [facility] [address] [place] [address] Health Maintenance Due Date Last Done Comments Cologuard 1965 Colonoscopy 02/20/2009 Pneumococcal Vaccine: 50+ Years (1 of 1 - PCV) 02/20/2014 Shingrix (ZOSTER RECOMBINANT) (1 of 2) 02/20/2014 Td, Tdap Vaccines Adult 05/18/2023 05/18/2013 Influenza Vaccination (#1) 06/02/202509/11, 09/11/2021, 10/24/2010 Annual Wellness 08/19/2025 08/19/2024, 03/0 11/2018, 04/23/2017 Mammogram 10/12/2025 10/12/2024, 10/02, 04/03/2023, Additional history exists Bone Density Scan (DXA Scan) 02/20/2029 10/12/2024, 10/12/2024, 10/12/2024, Additional history exists Pap Smear Discontinued 02/14/2019, 12/31, 11/24/2012 COVID-19 Vaccine Discontinued 09/11/2022, 08/2021, 12/06/2020, Additional history exists HIB Vaccines Aged Out No longer eligi ble based on patient's age to complete this topic HPV Vaccines Aged Out No longer eligi ble based on patient's age to complete this topic Hepatitis A Vaccines Aged Out No long er eligible based on patient's age to complete this topic Hepatitis B Vaccines Discontinued IPV Vaccines Aged Out No longer eligi ble based on patient's age to complete this topic Meningococcal Vaccines Aged Out No lo nger eligible based on patient's age to complete this topic RSV 60+ Discontinued RSV Mab Nirsevimab (Beyfortus) <20 months Aged Out No longer eligibl e based on patient's age to complete this topic Rotavirus Vaccines Aged Out No longer eligible based on patient's age to complete this topic Procedures Procedure Name Priority Date/Time Associated Diagnosis Comments DEXA SCAN Routine 10/12/2024 2:33 PM SENIOR TECHNICAL SPECIALIST MAMMOGRAPHY Routine 10/12/2024 2:30 PM SENIOR TECHNICAL SPECIALIST THINPREP PAP SCRN W/HPV >=30YR Routine 02/14/2019 4:34 PM CDT Encounter for repeat Pap smear due to previous insuff cervical cells from Last 3 Months or Most Recently Relevant to Health Maintenance Results * DEXA SCAN (10/12/2024 2:33 PM SENIOR TECHNICAL SPECIALIST) Historical Provider HEALTH MAINTENANCE Final Result * HM MAMMOGRAPHY (10/12/2024 2:30 PM SENIOR TECHNICAL SPECIALIST) Historical Provider HEALTH MAINTENANCE Final Result * ThinPrep PAP Screen w/HPV >=30yr (02/14/2019 4:34 PM CDT) Bhavana Polanco MD LAB PATHOLOGY/CYTOLOGY [facility]HAEL [facility]EE Final Result NON-INTERFACED LAB from Last 3 Months or Most Recently Relevant to Health Maintenance [place] [address] Care Teams Fig Caprifier Relationship Specialty Start Date End Date Gila Hills FNP [address] [place] [address] PCP - General Family Medicine 06/17/19
--- OUTSIDE RECORDS SUMMARY | 2025-06-26 13:08 | XMS_ITS | Encounter Summary ---
Author Organization [facility] Address [address] [place] [address] Care Team Providers Care Census Enumerator Name Role Phone [place]ila [place] Primary Care Provider Encounter Details Date Type Department Care Team (Late st Contact Info) Description 10/13/2024 Orders Only [address] [address] Provider, MD Danyelle [address] [place] [address] Social History Tobacco Use Types Packs/Day Years [...] Description 08/21/2025 1:00 PM CDT Office Visit [address] [address] Gila Hills FNP [address] [place], [place] [address] documented as of this encounter Procedures Procedure Name Priority Date/Time Associated Diagnosis Comments HM DEXA SCAN Routine 10/12/2024 2:33 PM MATURITY CHECKER HM MAMMOGRAPHY Routine 10/12/2024 2:30 PM MATURITY CHECKER documented in this encounter Results * HM DEXA SCAN (10/12/2024 2:33 PM MATURITY CHECKER) us Historical Provider MD HEALTH MAINTENANCE Final Result * HM MAMMOGRAPHY (10/12/2024 2:30 PM MATURITY CHECKER) us Historical Provider MD HEALTH MAINTENANCE Final Result documented in this encounter Visit Diagnoses Not on filedocumented in this encounter Additional Health Concerns Health Status Noted Date Alive and well 08/19/2024 Assessment Noted Time PHQ-9 Depression Total Score: 0 01/27/20 20 8:27 AM CDT A fall risk assessment has been complete d for the patient 08/19/2024 1:58 PM CDT documented as of this encounter Care Teams Census Enumerator Relationship Specialty Start Date End Date Gila Hills FNP [address] [facility] [place] [address] PCP - General Family Medicine 06/17/19 documented as of this encounter
--- OUTSIDE RECORDS SUMMARY | 2025-06-26 13:08 | XMS_ITS | Encounter Summary ---
Author Organization [facility] Address [address] [place] [address] Care Team Providers Care Primary Special Education Teacher Name Role Phone G[place] Primary Care Provider Encounter Details Date Type Department Care Team (Late st Contact Info) Description 01/08/2024 Orders Only [address] [address] Gila Hills FNP [address] [place], [place] [address] Social History Tobacco Use Types Packs/Day Years Used Date Smoking Tobacco: Never Smokeless Tobacco: Never Alcohol Use Standard Drinks/Week Comments No 0 (1 standard drink = 0.6 oz pur e alcohol) PHQ-2 Answer Date Recorded PHQ-2 Score 0 12/23/2023 Comments Unknown Sex and Gender Information Value Date Recorded Sex Assigned at Not on file Legal Sex Female 5:23 PM CDT Gender Identity Not on file Sexual Orientation Not on file documented as of this encounter Plan of Treatment Upcoming Encounters Date Type Department Care Team (Late st Contact Info) Description 08/21/2025 1:00 PM CDT Office Visit [address] [address] Gila Hills FNP [address] [facility] [place] [address] documented as of this encounter Visit Diagnoses Not on filedocumented in this encounter Additional Health Concerns Health Status Noted Date Alive and well 12/23/2023 Assessment Noted Time PHQ-9 Depression Total Score: 0 01/27/20 20 8:27 AM CDT A fall risk assessment has been complete d for the patient 12/23/2023 3:22 PM HEALTH PROGRAM DIRECTOR documented as of this encounter Care Teams Primary Special Education Teacher Relationship Specialty Start Date End Date Gila Hills FNP [address] [facility] [place] [address] PCP - General Family Medicine 06/17/19 documented as of this encounter
--- OUTSIDE RECORDS SUMMARY | 2025-06-26 13:08 | XMS_ITS | Encounter Summary ---
Author Organization [facility] Address [address] [place] [address] Care Team Providers Care Digital Marketing Project Manager Name Role Phone Reinier Gila Luciano [facility] Primary Care Provider [phone] Encounter Details Date Type Department Care Team (Late st Contact Info) Description 02/25/2024 Telephone [facility] [address] [place] [id number] Alma Rosa Lau Social History Tobacco Use Types Packs/Day Years [...] encounter Miscellaneous Notes * Telephone Encounter - Alma Rosa Lau - 02/25/2024 4:33 PM CDT [facility] [place] * Telephone Encounter - ABRAN Gregory - 02/25/2024 3:31 PM CDT Finish current taper. This will be 8 days total. I can send in topical triamcinolone cream to applyas well. What pharmacy? * Telephone Encounter - Alma Rosa Lau - 02/25/2024 3:23 PM CDT Patient states her original poison ady patches are drum drier than they were at OV, but new patches are popping up. She says she has 4 pills of prednisone left to take. Please advise. documented in this encounter Plan of Treatment Upcoming Encounters Date Type Department Care Team (Late st Contact Info) Description 08/21/2025 1:00 PM CDT Office Visit [facility] [place] [address] [place] [address] Gila Hills FNP [address] [place] [address] documented as of this encounter Visit Diagnoses Not on filedocumented in this encounter Additional Health Concerns Health Status Noted Date Alive and well 02/22/2024 Assessment Noted Time PHQ-9 Depression Total Score: 0 01/27/20 20 8:27 AM CDT A fall risk assessment has been complete d for the patient 02/22/2024 11:17 AM CDT documented as of this encounter Care Teams Digital Marketing Project Manager Relationship Specialty Start Date End Date Gila Hills FNP [address] [place] [address] PCP - General Family Medicine 06/17/19 documented as of this encounter
--- OUTSIDE RECORDS SUMMARY | 2025-06-26 13:08 | XMS_ITS | Encounter Summary ---
Author Organization [facility] Address 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 Gender Identity Not on file Sexual Orientation Not on file documented as of this encounter Plan of Treatment Upcoming Encounters Date Type Department Care Team (Late Contact Info) Description 07/25/2025 1:00 PM CDT Appointment [facility] Laboratory Services [facility] [address] [place] [phone] 07/25/2025 2:00 PM CDT Office Visit [facility] Oncology and Hematology [address] [place] [address] Ramesh Dumas MD [address] [place] [address] documented as of this encounter Procedures Procedure Name Priority Date/Time Associated Diagnosis Comments PATHOLOGY Routine 01/09/2009 1:21 PM CDT POC GLUCOSE Routine 01/09/2009 1:09 PM CDT C. DIFFICILE DETECTION Routine 12:56 PM CDT OVA AND PARASITE SCREEN Routine 01/10/20 12:56 PM CDT STOOL CULTURE W/SHIGA TOXIN Routine 01/09/2009 12:56 PM CDT POC GLUCOSE Routine 01/09/2009 5:36 AM CDT POC GLUCOSE Routine 01/08/2009 9:29 PM CDT TRANSGLUTAMINASE IGG ANTIBODY Routine 01/08/2009 9:20 PM CDT IGA Routine 01/08/2009 9:20 PM CDT POC GLUCOSE Routine 01/08/2009 5:16 PM CDT POC GLUCOSE Routine 01/08/2009 12:05 PM CDT POC GLUCOSE Routine 01/08/2009 6:18 AM CDT CBC WITH DIFFERENTIAL Routine 01/08/2009 5:45 AM CDT BASIC METABOLIC PANEL Routine 01/08/2009 5:45 AM CDT POC GLUCOSE Routine 01/07/2009 8:16 PM CDT POC GLUCOSE Routine 01/07/2009 4:55 PM CDT CARDIAC ENZYMES Routine 01/07/2009 2:20 PM CDT FECAL LEUKOCYTES STAIN Routine 9 12:02 PM CDT POC GLUCOSE Routine 01/07/2009 11:39 AM CDT C-REACTIVE PROTEIN Routine 01/07/2009 8: 16 AM CDT CBC WITH DIFFERENTIAL Routine 01/07/2009 5:50 AM CDT BASIC METABOLIC PANEL Routine 01/07/2009 5:50 AM CDT POC GLUCOSE Routine 01/07/2009 4:57 AM CDT POC GLUCOSE Routine 01/07/2009 1:12 AM CARDING MACHINE OPERATOR C. DIFFICILE DETECTION Stat 9 11:55 PM CARDING MACHINE OPERATOR CTA CHEST W WO CONTRAST Routine 01/07/20 09 10:49 PM CARDING MACHINE OPERATOR ED HOLD Stat 01/06/2009 8:45 PM CARDING MACHINE OPERATOR CBC WITH DIFFERENTIAL Stat 01/06/2009 8:45 PM CARDING MACHINE OPERATOR URINALYSIS WITH MICROSCOPIC Stat 01/06/2009 8:45 PM CARDING MACHINE OPERATOR LIPASE Stat 01/06/2009 8:45 PM CARDING MACHINE OPERATOR COMPREHENSIVE METABOLIC PANEL Stat 01/06/2009 8:45 PM CARDING MACHINE OPERATOR documented in this encounter Results * PATHOLOGY (01/09/2009 1:21 PM CDT) FINAL REPORT [facility] [address], [place] [address] Patient: RANDY SNYDER : 1965 Procedure Date: 01/09/2009 Accession Date: 01/09/2009 Case No: [id number] Ordering Dr: LEIDY CHRISTIAN Case types AW, BW, FW, NW and SH are performed by [facility], [place], [place] SURGICAL PATHOLOGY & NON-GYNECOLOGIC CYTOPATHOLOGY REPORT DIAGNOSIS SMALL INTESTINE, EXACT SITE NOT SPECIFIED, RANDOM BIOPSIES: - NO PATHOLOGIC DIAGNOSIS. LARGE INTESTINE, MULTIPLE RANDOM BIOPSIES: - NO PATHOLOGIC DIAGNOSIS. Specimen Description: (1) Random small bowel biopsies; (2) random colon biopsies. Operative Procedure: Colonoscopy and EGD. Patient Information/Histo ry/Diagnosis: (1) Small bowel Bx. Rule out sprue (chronic diarrhea and/or Fe-deficiency anemia); (2) Chronic diarrhea. Please look for collagenous colitis, microscopic colitis. Gross: Two containers are received labeled Randy Snyder. The first specimen is received in a container labeled cold biopsy random small bowel. It consists of six pieces of blanco tissue ranging from less than 0.1 to 0.3 cm in greatest dimension. The specimen is submitted entirely labeled A1. The second specimen is received in a container labeled cold biopsy random colon. It consists of seven pieces of translucent blanco tissue ranging from less than 0.1 to 0.3 cm in greatest dimension. The specimen is submitted entirely labeled B1. BRUNOA/LONI 01.10.2009 08:01 am Microscopic: The slides are labeled Randy Snyder and [id number]. The biopsies from the small intestine show preservation of the villous architecture. No ulcerations or significant acute inflammation is identified. The number of chronic inflammatory cells in the surface epithelium and lamina propria is not significantly increased. No granulomas or parasites are identified. The features are not indicative of celiac disease. The biopsies from the colon all show preservation of the crypt architecture. No ulcerations, significant acute inflammation, or significantly increased number of chronic inflammatory cells is identified. No granulomas are identified. There is no significant thickening of the subluminal collagen table. JCL/SKW 01.10.2009 02:01 pm Staging Form: No. ELECTRONIC SIGNATURE FOR CHRISTIANO AMARAL M.D.- 01/11/09 00:41 am INTERFACE SYSTEM 01/09/2009 1:21 PM CDT us Leidy Christian MD PATHOLOGY/CYTOLOGY ORDERABLE S Final Result INTERFACE SYSTEM Refer to clinic/hospital department * (ABNORMAL) POC GLUCOSE (01/09/2009 1:09 PM CDT) COMMENT, GLU POC Notified RN [facility] GLUCOSE POC 130(H) 65 - 99 mg/dL [facility] Venous blood specimen (specimen) 01/09/2009 1:09 PM CDT 01/09/2009 1:09 PM CDT Rodolfo Smith MD POINT OF CARE TESTING Final R esult Performing Organization Address [facility] de Phone Number INTERFACE SYSTEM Refer to clinic/hospital department [facility] CLIA# [id number] [address] [place] [address] * OVA AND PARASITE SCREEN (01/09/2009 12:56 PM CDT) PRELIMINARY REPORT Pending [facility] FINAL REPORT Concentratio n: No ova or parasites seen. Trichrome: No ova or parasites seen. [facility] Stool specimen (specimen) 01/09/2009 12:56 PM CDT 01/09/2009 1:31 PM CDT Narrative INTERFACE SYSTEM - 01/11/2009 3:37 PM CDT Performed by [email or web address] [address] Performed by [email or web address] [address] Rodolfo Smith MD MICROBIOLOGY - GENERAL ORDERA BLES Final Result Performing Organization Address [facility] de Phone Number INTERFACE SYSTEM Refer to clinic/hospital department [facility] CLIA# [id number] [address] [place] [address] * STOOL CULTURE (01/09/2009 12:56 PM CDT) PRELIMINARY REPORT No Salmonella isolated. No Shigella isolated. No Escherichia coli serogroup O157:H7 isolated. [facility] FINAL REPORT No Salmonella isolated. No Shigella isolated. No Escherichia coli serogroup O157:H7 isolated. No Camplylobacter isolated. [facility] Stool specimen (specimen) 01/09/2009 12:56 PM CDT 01/09/2009 1:30 PM CDT Rodolfo Smith MD MICROBIOLOGY - GENERAL ORDERA BLETeresa Final Result Performing Organization Address [facility] Phone Number INTERFACE SYSTEM Refer to clinic/hospital department [facility] CLIA# [id number] [address] [place] [address] * CLOSTRIDIUM DIFFICILE TOXIN (01/09/2009 12:56 PM CDT) FINAL REPORT NO Clostridium difficile Toxin A or B detected by EIA. A negative result does not rule out C. difficile associated diarrhea or colitis. [facility] Stool specimen (specimen) 01/09/2009 12:56 PM CDT 01/09/2009 1:30 PM CDT Rodolfo Smith MD MICROBIOLOGY - GENERAL [place] Final Result Performing Organization Address [facility] Phone Number INTERFACE SYSTEM Refer to clinic/hospital department [facility] CLIA# [id number] [address] [address] * (ABNORMAL) POC GLUCOSE (01/09/2009 5:36 AM CDT) COMMENT, GLU POC Notified RN [facility] GLUCOSE POC 130(H) 65 - 99 mg/dL [facility] Venous blood specimen (specimen) 01/09/2009 5:36 AM CDT 01/09/2009 5:36 AM CDT us Rodolfo Smith MD POINT OF CARE TESTING Final R esult Performing Organization Address [facility] Phone Number INTERFACE SYSTEM Refer to clinic/hospital department [facility] CLIA# [id number] [address] [place] [address] * (ABNORMAL) POC GLUCOSE (01/08/2009 9:29 PM CDT) [facility] GLUCOSE POC 111(H) 65 - 99 mg/dL [facility] Venous blood specimen (specimen) 01/08/2009 9:29 PM CDT 01/08/2009 9:29 PM CDT us Rodolfo Smith MD POINT OF CARE TESTING Final R esult Performing Organization Address [facility] de Phone Number INTERFACE SYSTEM Refer to clinic/hospital department [facility] CLIA# [id number] [address] [place] [address] * TRANSGLUTAMINASE IGG ANTIBODY (01/08/2009 9:20 PM CDT) [facility] TRANSGLUTAMINASE IGG AB <3 <7 U/mL [facility] Comment: Reference range: <7 U/mL Negative 7-10 U/mL Equivocal >10 U/mL Positive Lab test performed by: [employer] [address] [place] [id number] ADA MACIEL MD Blood specimen (specimen) 01/08/2009 9:20 PM CDT 01/08/2009 9:29 PM CDT us Leidy Christian MD CHEMISTRY ORDERABLES Final R esult Performing Organization Address City/[facility]/ZIP Co de Phone Number INTERFACE SYSTEM Refer to clinic/hospital department [facility] CLIA# [id number] [address] [place] [address] * IGA (01/08/2009 9:20 PM CDT) [facility] IGA 131.7 87.0 - 421.0 mg/dL [facility] Blood specimen (specimen) 01/08/2009 9:20 PM CDT 01/08/2009 9:29 PM CDT us Leidy Christian MD CHEMISTRY ORDERABLES Final R esult Performing Organization Address [facility] de Phone Number INTERFACE SYSTEM Refer to clinic/hospital department [facility] CLIA# [id number] [address] [place] [address] * (ABNORMAL) POC GLUCOSE (01/08/2009 5:16 PM CDT) GLUCOSE POC 113(H) 65 - 99 mg/dL [facility] Venous blood specimen (specimen) 01/08/2009 5:16 PM CDT 01/08/2009 5:16 PM CDT us Rodolfo Smith MD POINT OF CARE TESTING Final R esult Performing Organization Address [facility] Phone Number INTERFACE SYSTEM Refer to clinic/hospital department [facility] CLIA# [id number] [address] [place] [address] * (ABNORMAL) POC GLUCOSE (01/08/2009 12:05 PM CDT) GLUCOSE POC 157(H) 65 - 99 mg/dL [facility] Venous blood specimen (specimen) 01/08/2009 12:05 PM CDT 01/08/2009 12:05 PM CDT us Rodolfo Smith MD POINT OF CARE TESTING Final R esult Performing Organization Address [facility] de Phone Number INTERFACE SYSTEM Refer to clinic/hospital department [facility] CLIA# [id number] [address] [place] [address] * (ABNORMAL) POC GLUCOSE (01/08/2009 6:18 AM CDT) GLUCOSE POC 142(H) 65 - 99 mg/dL [facility] Venous blood specimen (specimen) 01/08/2009 6:18 AM CDT 01/08/2009 6:18 AM CDT Adalberto Jara MD POINT OF CARE TESTING Final Re sult INTERFACE SYSTEM Refer to clinic/hospital department [facility] CLIA# [id number] [address] [facility] [facility] [place] [address] * (ABNORMAL) BASIC METABOLIC PANEL (01/08/2009 5:45 AM CDT) BUN 6 6 - 20 mg/dL [facility] CHLORIDE 107 96 - 108 mmol/L [facility] GLUCOSE 126(H) 65 - 99 mg/dL [facility] SODIUM 137 135 - 145 mmol/L [facility] CALCIUM 8.0(L) 8.6 - 10.2 mg/dL [facility] CO2 22 22 - 30 mmol/L [facility] CREATININE 0.45(L) 0.51 - 0.95 mg/dL [facility] POTASSIUM 3.7 3.5 - 4.9 mmol/L [facility] GFR, >60 >=60 mL/min/1. 7 sq meter [facility] GFR >60 >=60 mL/min/1. 7 sq meter [facility] Comment: Modification of Diet in Renal Disease (MDRD) study formula. Estimated GFR rate interpretative information for both Americans and non- Americans is available on the [facility] Intranet at: [email or web address] Select: Lab Policies and Procedures Select: Reference Ranges - GFR Blood specimen (specimen) 01/08/2009 5:45 AM CDT 01/08/2009 6:27 AM CDT us Rodolfo Smith MD CHEMISTRY ORDERABLES Edited INTERFACE SYSTEM Refer to clinic/hospital department [facility] CLIA# [id number] [address] [place] [address] * (ABNORMAL) CBC WITH DIFFERENTIAL (01/08/2009 5:45 AM CDT) RDW 14.1 11.5 - 14.5 % [facility] WBC 6.2 4.0 - 9.8 K/uL [facility] MCH 26.3(L) 27.2 - 32.6 pg [facility] MPV 10.6 9.3 - 12.4 fL [facility] HEMATOCRIT 34.9(L) 35.5 - 44.0 % [facility] RDW-STDEV 43.3 37.1 - 48.7 fL [facility] RBC 4.14 3.90 - 4.90 M/uL [facility] MCHC 31.2(L) 31.5 - 35.5 % [facility] MCV 84.3 82.0 - 99.0 fL [facility] PLATELETS 261 140 - 350 K/uL [facility] HEMOGLOBIN 10.9(L) 11.8 - 14.8 g/dL [facility] LYMPHOCYTES 32 16 - 45 % [facility] MONOCYTE ABSOLUTE 0.42 0.10 - 1.30 K/uL [facility] NEUTROPHILS 55 45 - 70 % [facility] NEUTROPHIL ABSOLUTE 3.41 1.90 - 7.00 K/uL [facility] BASOPHILS 0 0 - 2 % [facility] EOSINOPHIL ABSOLUTE 0.34 0.00 - 0.70 K/uL [facility] EOSINOPHILS 6 0 - 7 % [facility] LYMPHOCYTE ABSOLUTE 2.00 0.70 - 4.50 K/uL [facility] MONOCYTES 7 3 - 13 % [facility] BASOPHILS ABSOLUTE 0.01 0.00 - 0.20 K/uL [facility] Blood specimen (specimen) 01/08/2009 5:45 AM CDT 01/08/2009 6:27 AM CDT Rodolfo Smith MD HEMATOLOGY ORDERABLES Edited Performing Organization Address [facility] de Phone Number INTERFACE SYSTEM Refer to clinic/hospital department [facility] CLIA# [id number] [address] [place] [address] * (ABNORMAL) POC GLUCOSE (01/07/2009 8:16 PM CDT) GLUCOSE POC 142(H) 65 - 99 mg/dL [facility] COMMENT, GLU POC Notified RN [facility] Venous blood specimen (specimen) 01/07/2009 8:16 PM CDT 01/07/2009 8:16 PM CDT Adalberto Jara MD POINT OF CARE TESTING Final Re sult Performing Organization Address [facility] de Phone Number INTERFACE SYSTEM Refer to clinic/hospital department [facility] CLIA# [id number] [address] [place] [address] * (ABNORMAL) POC GLUCOSE (01/07/2009 4:55 PM CDT) GLUCOSE POC 113(H) 65 - 99 mg/dL [facility] Venous blood specimen (specimen) 01/07/2009 4:55 PM CDT 01/07/2009 4:55 PM CDT us Adalberto Jara MD POINT OF CARE TESTING Final Re sult Performing Organization Address [facility] de Phone Number INTERFACE SYSTEM Refer to clinic/hospital department [facility] CLIA# [id number] [address] [place] [address] * CARDIAC ENZYMES (01/07/2009 2:20 PM CDT) TROPONIN T <0.01 <=0.03 ng/mL [facility] TROPONIN T INTERP Negative [facility] Blood specimen (specimen) 01/07/2009 2:20 PM CDT 01/07/2009 2:27 PM CDT Filiberto Samayoa MD CHEMISTRY ORDERABLES Edited Performing Organization Address [facility] Phone Number INTERFACE SYSTEM Refer to clinic/hospital department [facility] CLIA# [id number] [address] [place] [address] * FECAL LEUKOCYTES STAIN (01/07/2009 12:02 PM CDT) [facility] FINAL REPORT No WBC's seen. [facility] Stool specimen (specimen) 01/07/2009 12:02 PM CDT 01/07/2009 12:27 PM CDT Adalberto Jara MD MICROBIOLOGY - GENERAL ORDERAB LES Final Result Performing Organization Address [facility] de Phone Number INTERFACE SYSTEM Refer to clinic/hospital department [facility] CLIA# [id number] [address] [place] [address] * (ABNORMAL) POC GLUCOSE (01/07/2009 11:39 AM CDT) GLUCOSE POC 148(H) 65 - 99 mg/dL [facility] Venous blood specimen (specimen) 01/07/2009 11:39 AM CDT 01/07/2009 11:39 AM CDT Adalberto Jara MD POINT OF CARE TESTING Final Re sult Performing Organization Address [facility] de Phone Number INTERFACE SYSTEM Refer to clinic/hospital department [facility] CLIA# [id number] [address] [place] [address] * (ABNORMAL) C-REACTIVE PROTEIN (01/07/2009 8:16 AM CDT) [facility] CRP 3.0(H) 0.0 - 0.8 mg/dL [facility] Blood specimen (specimen) 01/07/2009 8:16 AM CDT 01/07/2009 8:16 AM CDT Narrative INTERFACE SYSTEM - 01/07/2009 8:33 AM CDT Add to blood in lab. Adalberto Jara MD CHEMISTRY ORDERABLES Final Res ult Performing Organization Address [facility] de Phone Number INTERFACE SYSTEM Refer to clinic/hospital department [facility] CLIA# [id number] [address] [place] [address] * (ABNORMAL) CBC WITH DIFFERENTIAL (01/07/2009 5:50 AM CDT) [facility] HEMOGLOBIN 11.3(L) 11.8 - 14.8 g/dL [facility] RDW 14.2 11.5 - 14.5 % [facility] WBC 7.5 4.0 - 9.8 K/uL [facility] MCH 27.1(L) 27.2 - 32.6 pg [facility] MPV 10.4 9.3 - 12.4 fL [facility] HEMATOCRIT 35.1(L) 35.5 - 44.0 % [facility] RDW-STDEV 44.0 37.1 - 48.7 fL [facility] RBC 4.17 3.90 - 4.90 M/uL [facility] MCHC 32.2 31.5 - 35.5 % [facility] MCV 84.2 82.0 - 99.0 fL [facility] PLATELETS 286 140 - 350 K/uL [facility] EOSINOPHIL ABSOLUTE 0.38 0.00 - 0.70 K/uL [facility] LYMPHOCYTES 27 16 - 45 % [facility] LYMPHOCYTE ABSOLUTE 2.01 0.70 - 4.50 K/uL [facility] BASOPHILS 0 0 - 2 % [facility] BASOPHILS ABSOLUTE 0.01 0.00 - 0.20 K/uL [facility] MONOCYTES 6 3 - 13 % [facility] MONOCYTE ABSOLUTE 0.41 0.10 - 1.30 K/uL [facility] NEUTROPHILS 63 45 - 70 % [facility] NEUTROPHIL ABSOLUTE 4.70 1.90 - 7.00 K/uL [facility] EOSINOPHILS 5 0 - 7 % [facility] Blood specimen (specimen) 01/07/2009 5:50 AM CDT 01/07/2009 6:15 AM CDT Adalberto Jara MD HEMATOLOGY ORDERABLES Edited INTERFACE SYSTEM Refer to clinic/hospital department [facility] CLIA# [id number] [address] [place] [address] * (ABNORMAL) BASIC METABOLIC PANEL (01/07/2009 5:50 AM CDT) CHLORIDE 105 96 - 108 mmol/L [facility] GLUCOSE 131(H) 65 - 99 mg/dL [facility] SODIUM 138 135 - 145 mmol/L [facility] CALCIUM 8.5(L) 8.6 - 10.2 mg/dL [facility] CO2 24 22 - 30 mmol/L [facility] CREATININE 0.49(L) 0.51 - 0.95 mg/dL [facility] POTASSIUM 3.4(L) 3.5 - 4.9 mmol/L [facility] BUN 5(L) 6 - 20 mg/dL [facility] GFR, >60 >=60 mL/min/1. 7 sq meter [facility] GFR >60 >=60 mL/min/1. 7 sq meter [facility] Comment: Modification of Diet in Renal Disease (MDRD) study formula. Estimated GFR rate interpretative information for both Americans and non- Americans is available on the [facility] Intranet at: [email or web address] Select: Lab Policies and Procedures Select: Reference Ranges - GFR Blood specimen (specimen) 01/07/2009 5:50 AM CDT 01/07/2009 6:15 AM CDT us Adalberto Jara MD CHEMISTRY ORDERABLES Edited INTERFACE SYSTEM Refer to clinic/hospital department [facility] CLIA# [id number] [address] [place] [address] * (ABNORMAL) POC GLUCOSE (01/07/2009 4:57 AM CDT) COMMENT, GLU POC Notified RN [facility] GLUCOSE POC 140(H) 65 - 99 mg/dL [facility] Venous blood specimen (specimen) 01/07/2009 4:57 AM CDT 01/07/2009 4:57 AM CDT us Adalberto Jara MD POINT OF CARE TESTING Final Re sult Performing Organization Address City/[facility] de Phone Number INTERFACE SYSTEM Refer to clinic/hospital department [facility] CLIA# [id number] [address] [place] [address] * (ABNORMAL) POC GLUCOSE (01/07/2009 1:12 AM CARDING MACHINE OPERATOR) COMMENT, GLU POC Notified RN [facility] GLUCOSE POC 111(H) 65 - 99 mg/dL [facility] Venous blood specimen (specimen) 01/07/2009 1:12 AM CARDING MACHINE OPERATOR 01/07/2009 1:12 AM CARDING MACHINE OPERATOR Adalberto Jara MD POINT OF CARE TESTING Final Re sult Performing Organization Address [facility] de Phone Number INTERFACE SYSTEM Refer to clinic/hospital department [facility] CLIA# [id number] [address] [place] [address] * CLOSTRIDIUM DIFFICILE TOXIN (01/06/2009 11:55 PM CARDING MACHINE OPERATOR) FINAL REPORT NO Clostridium difficile Toxin A or B detected by EIA. A negative result does not rule out C. difficile associated diarrhea or colitis. [facility] Stool specimen (specimen) 01/06/2009 11:55 PM CARDING MACHINE OPERATOR 01/07/2009 12:13 AM CARDING MACHINE OPERATOR Christiano Antunez Jr., MD MICROBIOLOGY - GENERAL ORD ERABLES Final Result Performing Organization Address [facility] de Phone Number INTERFACE SYSTEM Refer to clinic/hospital department [facility] CLIA# [id number] [address] [place] [address] * CTA CHEST W WO CONTRAST (01/06/2009 10:49 PM CARDING MACHINE OPERATOR) Anatomical Region Laterality Modality Chest Other 01/06/2009 10:4 9 PM CARDING MACHINE OPERATOR Narrative 01/06/2009 11:28 PM CARDING MACHINE OPERATOR [facility] [address] [place], [place] [address] Admit Date: 01/06/2009 RANDY SNYDER Sex: F Admit Prov: RENATO JENNINGS Date: 1965 Primary Care Prov: CMRN: [id number] Room: [facility] SSN: [id number] IMAGING SERVICES Ordering Prov: N/A Accession Number: [id number] Interpretation CT ANGIOGRAM OF THE CHEST WITH/WITHOUT AND RECONSTRUCTION. History: Shortness of breath. Nausea, vomiting, diarrhea Three days status post left laparoscopic cholecystectomy. Technique: Multiple contiguous axial images were obtained from the thoracic inlet through the upper abdomen after the intravenous administration of 125 mL of Optiray-320. Images were tailored for evaluation of the pulmonary arteries. Reformatted images were performed by the technologist. No prior studies are available for comparison. Findings: The aorta is normal in caliber throughout its visualized course. No pulmonary embolism is identified. No aortic dissection seen. The cardiac silhouette is mildly enlarged. There is no evidence of pericardial effusion. The lungs are clear with no evidence of infiltrate, pleural effusion, or pneumothorax. No lytic or blastic lesions are identified within the spine. Impression: No evidence of pulmonary embolism or aortic dissection. CT SCAN OF THE ABDOMEN AND PELVIS WITH CONTRAST. History: Nausea, vomiting, diarrhea. Recent cholecystectomy. Technique: Multiple contiguous axial images were obtained from the lung bases the symphysis pubis after the ingestion of oral contrast. The patient was given 125 mL of Optiray-320 for the examination of the CT scan of the chest. No additional intravenous contrast was given was given for the CT scan of the abdomen and pelvis. Findings: The liver, spleen, pancreas, adrenals, and kidneys are normal. No intrahepatic biliary ductal dilatation or hydronephrosis is identified. Postsurgical changes of cholecystectomy are identified. In the pelvis, the urinary bladder has a grossly normal morphology. No uterus is identified, suggesting a prior hysterectomy. No free fluid or free air is identified within the abdomen or pelvis. The small and large bowel are normal in caliber throughout their visualized course. The appendix is clearly seen and is normal in caliber. There is no evidence of periappendiceal fat stranding or fluid collection. No lymphadenopathy is identified within the abdomen or pelvis. Degenerative changes of the spine are again identified, but there is no evidence of lytic or blastic lesions. Impression: Post surgical changes of the cholecystectomy and hysterectomy. No acute intra-abdominal findings. . Dictated by: ANNE PURCELL 01/06/2009 23:18 Electronically signed by: ANNE PURCELL 01/06/2009 23:26 Procedure Note Anne Purcell - 01/06/2009 [facility] [address], [place] [address] Admit Date: 01/06/2009 RANDY SNYDER Sex: F Admit Prov: ER, AUTHORIZED P Date: 1965 Primary Care Prov: CMRN: [id number] Room: ER-A SSN: [id number] IMAGING SERVICES Ordering Prov: N/A Interpretation CT ANGIOGRAM OF THE CHEST WITH/WITHOUT AND RECONSTRUCTION. History: Shortness of breath. Nausea, vomiting, diarrhea Three daysstatus post left laparoscopic cholecystectomy. Technique: Multiple contiguous axial images were obtained from thethoracic inlet through the upper abdomen after the intravenous administrationof 125 mL of Optiray-320. Images were tailored for evaluation of thepulmonary arteries. Reformatted images were performed by the technologist. Noprior studies are available for comparison. Findings: The aorta is normal in caliber throughout its visualizedcourse. No pulmonary embolism is identified. No aortic dissection seen. Thecardiac silhouette is mildly enlarged. There is no evidence of pericardial effusion. The lungs are clear with no evidence of infiltrate,pleural effusion, or pneumothorax. No lytic or blastic lesions areidentified within the spine. Impression: No evidence of pulmonary embolism or aortic dissection. CT SCAN OF THE ABDOMEN AND PELVIS WITH CONTRAST. History: Nausea, vomiting, diarrhea. Recent cholecystectomy. Technique: Multiple contiguous axial images were obtained from thelung bases the symphysis pubis after the ingestion of oral contrast. Thepatient was given 125 mL of Optiray-320 for the examination of the CT scan ofthe chest. No additional intravenous contrast was given was given for theCT scan of the abdomen and pelvis. Findings: The liver, spleen, pancreas, adrenals, and kidneys arenormal. No intrahepatic biliary ductal dilatation or hydronephrosis isidentified. Postsurgical changes of cholecystectomy are identified. In the pelvis, the urinary bladder has a grossly normal morphology.No uterus is identified, suggesting a prior hysterectomy. No free fluidor free air is identified within the abdomen or pelvis. The small andlarge bowel are normal in caliber throughout their visualized course. The appendix is clearly seen and is normal in caliber. There is noevidence of periappendiceal fat stranding or fluid collection. No lymphadenopathyis identified within the abdomen or pelvis. Degenerative changes of thespine are again identified, but there is no evidence of lytic or blasticlesions. Impression: Post surgical changes of the cholecystectomy and hysterectomy. Noacute intra-abdominal findings. . Dictated by: ANNE PURCELL 01/06/2009 23:18 Electronically signed by: ANNE PURCELL 01/06/2009 23:26 Christiano Antunez Jr., MD CT ORDERABLES Final Resu lt * LIPASE (01/06/2009 8:45 PM CARDING MACHINE OPERATOR) LIPASE 22 13 - 60 U/L [facility] Blood specimen (specimen) 01/06/2009 8:45 PM CARDING MACHINE OPERATOR 01/06/2009 9:27 PM CARDING MACHINE OPERATOR Christiano Antunez Jr., MD CHEMISTRY ORDERABLES Final Result INTERFACE SYSTEM Refer to clinic/hospital department [facility] CLIA# [id number] [address] [facility] [place] [address] * (ABNORMAL) COMPREHENSIVE METABOLIC PANEL (01/06/2009 8:45 PM CARDING MACHINE OPERATOR) SODIUM 140 135 - 145 mmol/L [facility] ALKALINE PHOSPHATASE 83 35 - 104 U/L [facility] CO2 25 22 - 30 mmol/L [facility] BILIRUBIN TOTAL 0.3 0.2 - 1.0 mg/dL [facility] POTASSIUM 4.0 3.5 - 4.9 mmol/L [facility] TOTAL PROTEIN 7.3 6.3 - 8.6 g/dL [facility] GLUCOSE 99 65 - 99 mg/dL [facility] AST 23 12 - 32 U/L [facility] BUN 6 6 - 20 mg/dL [facility] CALCIUM 9.1 8.6 - 10.2 mg/dL [facility] ALBUMIN 4.2 3.4 - 4.8 g/dL [facility] CHLORIDE 104 96 - 108 mmol/L [facility] CREATININE 0.41(L) 0.51 - 0.95 mg/dL [facility] ALT 25 0 - 31 U/L [facility] GFR, >60 >=60 mL/min/1. 7 sq meter [facility] GFR >60 >=60 mL/min/1. 7 sq meter [facility] Comment: Modification of Diet in Renal Disease (MDRD) study formula. Estimated GFR rate interpretative information for both Americans and non- Americans is available on the [facility] Intranet at: [email or web address] Select: Lab Policies and Procedures Select: Reference Ranges - GFR Blood specimen (specimen) 01/06/2009 8:45 PM CARDING MACHINE OPERATOR 01/06/2009 9:27 PM CARDING MACHINE OPERATOR Christiano Antunez Jr., MD CHEMISTRY ORDERABLES Edite d INTERFACE SYSTEM Refer to clinic/hospital department [facility] CLIA# [id number] [address] [place] [address] * (ABNORMAL) CBC WITH DIFFERENTIAL (01/06/2009 8:45 PM CARDING MACHINE OPERATOR) RDW 14.1 11.5 - 14.5 % [facility] RBC 4.86 3.90 - 4.90 M/uL [facility] MCH 27.6 27.2 - 32.6 pg [facility] MPV 10.7 9.3 - 12.4 fL [facility] HEMATOCRIT 40.8 35.5 - 44.0 % [facility] RDW-STDEV 43.3 37.1 - 48.7 fL [facility] HEMOGLOBIN 13.4 11.8 - 14.8 g/dL [facility] MCHC 32.8 31.5 - 35.5 % [facility] WBC 10.8(H) 4.0 - 9.8 K/uL [facility] MCV 84.0 82.0 - 99.0 fL [facility] PLATELETS 315 140 - 350 K/uL [facility] LYMPHOCYTES 21 16 - 45 % [facility] LYMPHOCYTE ABSOLUTE 2.32 0.70 - 4.50 K/uL [facility] BASOPHILS 0 0 - 2 % [facility] BASOPHILS ABSOLUTE 0.03 0.00 - 0.20 K/uL [facility] MONOCYTES 4 3 - 13 % [facility] MONOCYTE ABSOLUTE 0.48 0.10 - 1.30 K/uL [facility] NEUTROPHILS 70 45 - 70 % [facility] NEUTROPHIL ABSOLUTE 7.52(H) 1.90 - 7.00 K/uL [facility] EOSINOPHILS 4 0 - 7 % [facility] EOSINOPHIL ABSOLUTE 0.48 0.00 - 0.70 K/uL [facility] Blood specimen (specimen) 01/06/2009 8:45 PM CARDING MACHINE OPERATOR 01/06/2009 9:31 PM CARDING MACHINE OPERATOR Christiano Antunez Jr., MD HEMATOLOGY ORDERABLES Edit ed Performing Organization Address City/[facility] Co de Phone Number INTERFACE SYSTEM Refer to clinic/hospital department [facility] CLIA# [id number] [address] [place] [address] * ED HOLD (01/06/2009 8:45 PM CARDING MACHINE OPERATOR) SPECIMEN HOLD, BLOOD 7 days [facility] Specimen of unknown material (specimen) 01/06/2009 8:45 PM CARDING MACHINE OPERATOR 01/06/2009 8:54 PM CARDING MACHINE OPERATOR us Silvia Beasley MD CHEMISTRY ORDERABLES Final Resul t Performing Organization Address [facility] de Phone Number INTERFACE SYSTEM Refer to clinic/hospital department [facility] CLIA# [id number] [address] [place] [address] * URINALYSIS WITH MICROSCOPIC (01/06/2009 8:45 PM CARDING MACHINE OPERATOR) RBC UA 1 0 - 4 /HPF [facility] SPECIFIC GRAVITY UA 1.015 1.001 - 1.035 [facility] GLUCOSE UA Negative Negative [facility] BLOOD UA Negative Negative [facility] COLOR UA Yellow [facility] NITRITE UA Negative Negative [facility] EPITHELIAL CELLS, URINE 5-10 /HPF [facility] UROBILINOGEN UA <1 <=1 mg/dL [facility] PH UA 6.5 5.0 - 8.0 [facility] KETONES UA Negative Negative [facility] WBC UA 1 0 - 5 /HPF [facility] CLARITY UA Clear Clear [facility] PROTEIN UA Negative Negative [facility] BILIRUBIN UA Negative Negative [facility] LEUKOCYTE ESTERASE UA Negative Negative [facility] Urine specimen (specimen) 01/06/2009 8:45 PM CARDING MACHINE OPERATOR 01/06/2009 8:54 PM CARDING MACHINE OPERATOR us Silvia Beasley MD URINE ORDERABLES Final Result INTERFACE SYSTEM Refer to clinic/hospital department [facility] CLIA# [id number] [address] [place] [address] documented in this encounter Visit Diagnoses Not on filedocumented in this encounter Additional Health Concerns Infection Onset Date Last Indicated Resolved Time R/O GI Pathogen 05/30/2025 05/30/2025 05/30/2025 6 :07 PM CDT R/O C. diff 05/30/2025 05/30/2025 05/30/2025 2:03 PM CDT documented as of this encounter Care Teams Egg Pasteurizer Relationship Specialty [place] [address] [place] [id number] PCP - General Family Practice 05/30/25 documented as of this encounter
--- OUTSIDE RECORDS SUMMARY | 2025-06-26 13:08 | XMS_ITS | Patient Health Record ---
Author Organization [facility] Address [address] [facility] [address] Care Team Providers Care Dental Chairside Assistant Name Role Phone [place] Primary Care Provider Nury Pineda Unavailable [phone] Allergies No Known Allergies Reason For Referral No Information Medications Medication SIG (Take, Route, Fr equency, Duration) Notes Start Date End Date Status Levothyroxine Sodium Active Naltrexone HCl 50 MG take ONE-HALF table t (25mg) BY MOUTH in THE morning Oral; Duration: 90 Days Active Estradiol 1 MG Oral; Duration: 90 Days Active Plan Of Treatment No Information Insurance Providers Payer Name Payer Address Payer Phone Subscriber Number Group Number Insured Name Patient Relationship to Insured Coverage Start Date Coverage End Date [address] [address] [id number] Yobany Snyder Self - patient is the insured
--- OUTSIDE RECORDS SUMMARY | 2025-06-26 13:08 | XMS_ITS | Encounter Summary ---
Author Organization [facility] Address [address] [place] [address] Care Team Providers Care [employer]ance [employer] Officer Name Role Phone Yadira Baptiste MD Primary Care Provider [phone] Encounter Details Date Type Department Care Team (Late st Contact Info) Description 05/13/2025 Results Follow-Up [facility] Emergency Clinical Decision Unit [address] [place] [address] Silvia Layne PA-C [address] [facility] [phone] URINE CULTURE Social History Tobacco Use Types Packs/Day Years Used Date Smoking Tobacco: Never Feeling Safe Answer Date Recorded Are you in a relationship wi th someone who hurts you emotionally and/or physically? 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 Keflex and Florator sent to her pharmacy documented in this encounter Plan of Treatment Upcoming Encounters Date Type Department Care Team (Late st Contact Info) Description 07/25/2025 1:[address] [facility] Laboratory Services [facility] [address] [place] [phone] 07/25/2025 2:00 PM CDT Office Visit [facility] Oncology and Hematology [address] [place] [phone] Ramesh Dumas MD [address] [place] [phone] documented as of this encounter Visit Diagnoses Not on filedocumented in this encounter Additional Health Concerns Infection Onset Date Last Indicated Resolved Time R/O GI Pathogen 05/30/2025 05/30/2025 05/30/2025 6 :07 PM CDT R/O C. diff 05/30/2025 05/30/2025 05/30/2025 2:03 PM CDT documented as of this encounter Care Teams [employer]ance [employer] Officer Relationship Specialty Start Date End Date Yadira Baptiste MD [address] [place] [id number] PCP - General Family Practice 05/30/25 documented as of this encounter
--- OUTSIDE RECORDS SUMMARY | 2025-06-26 13:09 | XMS_ITS | Patient Health Record ---
Author Organization [facility] Address [address] [facility] [address] [place] [address] Care Team Providers Care Career Development Coordinator/Teacher Name Role Phone Emile LAU, Yadira Primary Care Provider Unavail able Julianne Hood Unavailable [phone] Allergies Allergen (clinical drug ingredient) Drug/Non Drug Allergy documented on EMR Reaction Allergy Type Onset Date Status bacitracin Antibiotic diarrhea Drug Allergy Activ e Results Component Value Reference Range Notes CALPROTECTIN, STOOL Reviewed date:06/20/2025 09:41:54 AM Interpretation: Performing Lab:[facility], Phone - [phone], Director - Yoselyn Notes/Report: Clinical Information:SRC:ST Calprotectin, Fecal 253 0-120 ug/g Concentration Interpretation Follow-Up < 5 - 50 ug/g Normal None >50 -120 ug/g Borderline Re-evaluate in 4-6 weeks >120 ug/g Abnormal Repeat as clinically indicated GIARDIA AG, EIA, STOOL Reviewed date:06/20/2025 09:41:41 AM Interpretation: Performing Lab:[facility], [facility], Phone - [phone], Director - Yoselyn Notes/Report: Clinical Information:SRC: Giardia lamblia Ag, EIA Negative Negative Request Problem TNP Test not performed. Consistency of stool specimen too solid for analysis. TEST: [id number] Osmolality, Fecal Fecal Fat, Quantitative 72 h our Reviewed date:06/21/2025 07:59:39 AM Interpretation: Performing Lab:[facility], [facility], Phone - [phone], Director - Yoselyn Notes/Report: Test(s) 110934-Yno,(Fecal Lipids)Qn was developed and its performance characteristics determined by [facility]. It has not been cleared or approved by the Food and Drug Administration. Fecal Weight (Total) 393 Fat,(Fecal Lipids)Qn 6.1 0.0-7.1 g/24 hr 72 H OURS Osmolality, Fecal Reviewed date:06/20/2025 09:39:01 AM Interpretation: Performing Lab:[facility], [facility], Phone - [phone], Director - Yoselyn Notes/Report: Clinical Information:SRC:ST Osmolality, Fecal TNP Test not performed. Consistency of stool specimen too solid for analysis. Reason For Referral No Information Medications Medication SIG (Take, Route, Frequency, Duration) Notes Start Date End Date Status Probiotic Active Montelukast Sodium A ctive Levothyroxine Sodium Active OTC/Vitamins Vit D (50,000iu weekly), Iron Free Vitamin Active Estradiol Active Colestipol HCl 1 GM 1 tablet Orally Twice a day for 30 day(s) 06/07/2025 Active Social History Tobacco Use: Social History Observation Description Date Details (start date - stop date) Never Smoker NA - NA Tobacco Control (Standard) Question Answer Notes Tobacco use: Nonsmoker Problems Problem Type SNOMED Code ICD Code Onset Dates Problem Status W/U Status Risk Notes Problem 44608208 Fecal incontinence (R15.9) Active confirmed New issue over the last 2.5 months, started around the time she noticed a bulge at vaginal introitus. She has been diagnosed with pelvic floor prolapse. Suspect rectocele based on her symptoms of incontinence but enterocele or cystocele also possible (she is s/p hysterectomy). Discussed that this is likely contributing significantly to incontinence, and that surgical repair is a priority while we continue to work up the diarrhea. Vital Signs Height 68 in 06/07/2025 Weight 184 lbs 06/07/2025 BMI 27.97 kg/m2 06/07/2025 Procedures Procedure Date Ordered Date Performed Result Body Sit e Initiate SIBO 06/07/2025 N/A Encounters Encounter Location Date Provider Diagnosis [facility], [facility] [address] [place] [phone] 06/07/2025 Julianne Ancha Diarrhea R19.7 ; Fec al incontinence R15.9 ; Family history of colon cancer Z80.0 and Flatulence R14.3 [facility], [address] [place] [phone] 05/31/2025 Julianne Hood [facility], [address] [place] [phone] 06/08/2025 Julianne Hood [facility], [address] [place] [phone] 06/20/2025 Julianne Hood Assessments Encounter Date Diagnosis (ICD Code) Assessment Notes Treatment Notes Treatment Clinical Notes Section Notes 06/07/2025 Diarrhea (ICD-10 - R19.7) Complicated issue. She has a longstanding history of IBS-D but also was apparently recently diagnosed with Giardia infection. 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 Ddx includes SIBO, microscopic colitis, IBD. Will add colestipol to help reduce stool output, especially given hx of cholecystectomy there could be component of bile acid diarrhea. She should continue using Imodium as needed. Plan for additional stool workup including repeat Giardia testing, fecal fat, fecal calprotectin. If calprotectin substantially elevated and Giardia negative, she will benefit from colonoscopy though the timing of this will have to be coordinated pending her upcoming surgery to repair pelvic floor prolapse. 06/07/2025 Fecal incontinence (ICD-10 - R15.9) New issue over the last 2.5 months, started around the time she noticed a bulge at vaginal introitus. She has been diagnosed with pelvic floor prolapse. Suspect rectocele based on her symptoms of incontinence but enterocele or cystocele also possible (she is s/p hysterectomy). Discussed that this is likely contributing significantly to incontinence, and that surgical repair is a priority while we continue to work up the diarrhea. Suspect related to pelvic floor prolapse. Hopefully addition of colestipol will add some bulk to stool. She reports surgery is tentatively planned for first week of July. 06/07/2025 Family history of colon cancer (ICD-10 - Z80.0) Father with colon cancer who at age 49. Given diagnosis in FDR <60 years, she needs to be screened every 5 years at minimum. She will look through her records to find out when her last colonoscopy was, she thinks approximately 2019- if that is the case, she is due for repeat colonoscopy this year. She will try to find record from prior colonoscopy and send to our office. 06/07/2025 Flatulence (ICD-10 - R14.3) Substantial problem along with foul smelling stool, which could certainly be consistent with Giardia however her most recent stool test was negative. She is at risk for SIBO given recurrent abx use. Will evaluate for SIBO given recurrent/chronic antibiotic use and substantial flatulence, bloating. 06/07/2025 Other Total time spent reviewing the chart before the visit, [id number] time, time after visit for documentation and orders was greater than 45 minutes. Plan Of Treatment Pending Test Test Name Order Date Fecal Fat, Quantitative 72 hour 06/07/20 25 Initiate SIBO 06/07/2025 Insurance Providers Payer Name Payer Address Payer Phone Subscriber Number Group Number Insured Name Patient Relationship to Insured Coverage Start Date Coverage End Date [employer] [address] [place] [address] [id number] Yobany Snyder Self - patient is the insured [facility] E[address] [address] [place] [address] [id number] Eliseo Snyder Spouse - patient is the spouse of the insured Medical (General) History Medical History History ICD Code IBS Diverticulosis Thyroid Disease Surgical History Surgery Date(Month/Year) Colonoscopy (Outside Provider) 2022 Endoscopy (Outside Provider) 2022 Cholecystectomy Gastric Bypass
--- NOTE | 2025-06-26 14:00 | ECG_ITS ---
Test Date: 2025-06-26 14:16:56 Measurements Intervals [place] Rate: 59 P: -5 SD: 168 QRS: -18 QRSD: 87 T: 1 QT: 416 QTc: 414 Interpretive Statements SINUS BRADYCARDIA WITH OCCASIONAL VENTRICULAR PREMATURE COMPLEXES LOW QRS VOLTAGE IN PRECORDIAL LEADS VOLTAGE CRITERIA FOR LVH DELAYED PRECORDIAL R/S TRANSITION MINIMAL Q WAVES- HIGH LATERAL LEADS BORDERLINE ECG No previous ECG available for comparison Electronically Signed On 06-26-2025 14:31:41 CDT by Nelson Mathur D.O.
[2025-06-26 14:41] LABS: Hematocrit 47.1 % (37.0-47.0); Hemoglobin 14.9 g/dL (12.0-15.0); Immature Granulocyte Percent A 0.3 % (0-0.5); Immature Platelet Fraction Pct 9.5 % (0.9-11.2); Lymphocytes Absolute Auto 2.67 K/mm3 (0.9-3.2); Mean Corpuscular HGB Conc 31.6 g/dl (32-36); Mean Corpuscular Hemoglobin 29.2 pg (26-34); Mean Corpuscular Volume 92.4 fl (80-100); Nucleated Red Blood Cells Absolute Auto 0.000 K/mm3 (0.0-0.012); Nucleated Red Blood Cells Perc 0.0 % (0.0-0.2); Platelet Count Result 197 k/mm3 (150-375); Red Blood Count 5.10 M/mm3 (4.2-5.4); White Blood Count 6.4 K/mm3 (4.5-10.0)
[2025-06-26 14:49] LABS: INR 0.9; Prothrombin Time 12.8 Seconds (11.1-14.7)
[2025-06-26 14:50] LABS: Partial Thromboplastin Time 28.1 Seconds (22.3-36.8)
[2025-06-26 16:13] LABS: Alanine Aminotransferase 18 U/L (6-35); Albumin Level 4.3 g/dL (3.5-5.1); Alkaline Phosphatase 85 U/L (38-126); Anion Gap 6 mmol/L (4-12); Aspartate Amino Transferase 31 U/L (14-36); Bilirubin,Total 0.4 mg/dL (0.2-1.3); Blood Urea Nitrogen 11 mg/dL (7-17); Calcium 9.3 mg/dL (8.4-10.2); Carbon Dioxide 27 mmol/L (22-30); Chloride 105 mmol/L (98-107); Estimated Glomerular Filt Rate > 60; Glucose 82 mg/dL (65-110); Potassium 4.3 mmol/L (3.4-5.0); Sodium 138 mmol/L (137-145); Total Protein 7.0 g/dL (6.3-8.2)
== END 2025-06-26 12:55 | disposition home or self-care (01) ==
LOC: ANHSURGERY 13:01
PROVIDERS: PCP Family Medicine; Visit Provider Urology
DX: Z01.818 Encounter for other preprocedural examination (principal); N81.4 Uterovaginal prolapse, unspecified
CPT/HCPCS: 36415; 80053; 85025; 85055; 85610; 85730; 93005

== ENCOUNTER 2025-07-10 02:18 | Day surgery (SDC) | payer OTHER, SELFPAY ==
--- OUTSIDE RECORDS SUMMARY | 2019-10-31 12:00 | XMS_ITS | Continuity of Care Document ---
Author Organization [facility] Address [address] [place] [address] Phone Care Team Providers Care Hatchery Helper Name Role Phone Flavia Lee DO Unavailable Unavailable Allergies, Adverse Reactions, Alerts Substance Reaction Status Criticality adhesive Active No Information Medications Medication Instructions Dosage Effective Dates (start - stop) Status Comments ofloxacin 0.3 % ear drops instill 4 drop by otic route 2 times every day into affected ear(s) 0.6 MG - Active benzonatate 200 mg capsule take 1 capsule by oral route every bedtime as needed for cough 200 MG - Active Idamay Thyroid 120 mg tablet take 1 tablet by oral route every day 120 MG - Active Vitamin B-12 1,000 mcg/mL injection solution inject 2 milliliter by intramuscular route every 10 days 2000 MCG - Active RESTASIS (unknown strength) instill 1 drop by ophthalmic route every 12 hours into affected eye(s) Not Available - Active MULTIVITAMINS (unknown strength) take 1 capsule by oral route every day Not Available - Active CALCIUM (unknown strength) take 1 by Oral route every day Not Available - Active Procedures Procedure Date OFFICE/OUTPATIENT VISIT, EST IV OFFICE/OUTPATIENT VISIT, EST IV 017 X-RAY EXAM OF THORACIC SPINE 2 VIEWS Aug ELECTROCARDIOGRAM, COMPLETE PREV VISIT, NEW, AGE 40-64 CHEST X-RAY PA AND LATERAL UREA NITROGEN BUN CREATININE ROUTINE VENIPUNCTURE Advance Directives Directive Yes / No Effective Date File Name No Information Encounters Encounter Description Practice Location Reason(s) For Visit Diagnoses Date Provider Providers Copied on Encounter On License Of [facility], [address], [place], [place], [id number], [place] tel:[phone] [facility] No Information Rosa Alejandro. [address], [place], [place], [id number], [place]. tel:[phone] On License Of [facility], [address], [place], [place], [id number], [place] tel:[phone] [facility] No Information Rosa Alejandro. [address], [place], [place], [address], [place]. tel:[phone] OFFICE/OUTPAT IENT VISIT, [facility] IV [facility], [address], [place], [place], [id number], [place] tel:[phone] [facility] Cough (chief complaint) Body mass index (BMI) 30.0-30.9, adultAcute non-recurrent maxillary sinusitis Rosa Alejandro. [address], [place], [place], [address], [place]. tel:[phone] Referring Provider: Flavia Moore, [address], [place], [address] . tel:[phone] OFFICE/OUTPAT IENT VISIT, EST IV [facility], [address], [place], [place], [id number], [place] tel:[phone] [facility] Back pain (chief complaint)fo llow up cta (chief complaint) Body mass index (BMI) 29.0-29.9, adultAcute bilateral thoracic back painAcute seasonal allergic rhinitis, unspecified trigger Rosa Alejandro. [address], [place], [place], [id number], . tel:[phone] Referring Provider: Flavia Moore, [address], [place], [address] . tel:[phone] PREV VISIT, NEW, AGE 40-64 [facility], [address], [place], [place], [address], [place] tel:[phone] [facility] preventive exam (chief complaint)ba ck pain (chief complaint) Encntr for general adult medical exam w/o abnormal findingsBody mass index (BMI) 29.0-29.9, adultAcute bilateral thoracic back painEnlarged thoracic aortaBradycard ia, unspecified Rosa Alejandro. [address] [facility] [address], [place], [place], [address], [place]. tel:[phone] Referring Provider: Flavia Moore, [address] [facility] [address], [place], [address] . tel:[phone] Family History Family Member Type Diagnosis Age At Onset Problem (finding) Family history of breas t cancer Father Problem (finding) cancer of colon Problem (finding) Family history of Heart disease Problem (finding) Family history of strok e Payers Payer name Insurance type Covered alliance party ID Authoriza tion(s) No Information Social History Type Description Quantity Date Captured Comments Alcohol Use Details Unknown Caffeine Use Details Unknown Tobacco Use Status No Information Smoking Status No Information Sex Female Chief Complaint And Reason For Visit No Information Reason For Referral Reason For Referral No Information Plan Of Treatment Date Type Action Status Goal Dietary management education , guidance, and counseling completed Goal Dietary management education , guidance, and counseling completed Referral Ordered: X-RAY EXAM OF THORACIC SPINE 2 VIEWS ordered Referral Ordered: CT ANGIOGRAPHY, CHEST ordered History Of Present Illness Encounter Date Complaint History Of Mili nt Illness Cough Onset: 4 days ag o. The patient describes the cough as hacking, moist and productive. It occurs persistently. The problem has become gradually worse. Context: allergies. Symptoms are aggravated by allergens. Associated symptoms include cough, fatigue, hoarseness, nasal congestion, post-nasal drainage and sinus pressure. Back pain Severity level i s moderate. The problem is stable. It occurs persistently. Location of pain is middle back. Pain is radiated to the back.The patient describes the pain as an ache, burning and deep. Symptoms are aggravated by ascending stairs, bending, changing positions, extension, flexion and rolling over in bed. Symptoms are relieved by exercise, heat, lying down, massage, movement, stretching, rest and sitting. follow up cta The symptoms are reported as being moderate. The symptoms occur daily. follow up ctastill having some pain in the upper l mid chest back pain Onset: 5 weeks a go. The problem is worsening. It occurs persistently. Location of pain is upper back and middle back.The patient describes the pain as an ache, deep, sharp and shooting. Symptoms are aggravated by lying/rest. Additional information: Has a low tolerance to pain medication so tylenol knocks her out for hours. preventive exam Functional Status Date Functional Assessmen t No Information Instructions Date Instruction Additional Infor santiago Prescribed activity/exercise edu cation Related to Body mass index (BMI) 30.0-30.9, adult Dietary management e ducation, guidance, and counseling Related to Body mass index (BMI) 30.0-30.9, adult Prescribed activity/exercise edu cation Related to Body mass index (BMI) 29.0-29.9, adult Dietary management e ducation, guidance, and counseling Related to Body mass index (BMI) 29.0-29.9, adult Giving encouragement to exercise Related to Body mass index (BMI) 29.0-29.9, adult Assessments Type Assessment Date No Information Patient Care Teams Name Effective Dates (start - stop) Status Members No Information
--- NOTE | 2025-06-26 13:00 | PC.NURSE ---
Report to the Outpatient Waiting Room, entrance under the green pavilion located off [facility], at time __10 AM on date _07/10/25 . Planned Procedure Time: __1200 NOON .? Time changes happen often and if your time is changed the preop area will call you the afternoon before. - You and your visitor will be asked to self-screen and do not enter if you have any COVID symptoms. Please call surgeon if you need to reschedule. - A mask is optional within the hospital at this time. Patients may have clear liquids (water, carbonated beverages, clear teas, apple juice) until 3 hours prior to surgery( 9AM) with a maximum of 20 ounces. - No food from midnight until time of surgery and no smoking, or chewing tobacco (or any form of nicotine). No chewing gum, candy or mints. - Take only the following medications with a SIP of water on the morning of surgery: __LEVOTHYROXINE, EYE DROPS DO NOT STOP ANY OF YOUR OTHER PRESCRIPTION MEDICATIONS PRIOR TO SURGERY EXCEPT THE FOLLOWING Hold all vitamins and supplements for 3 days per anesthesiologist.LAST DOSE 07/06/25 Medications to discontinue per physician NONE Please no make-up, nail ukrainian, hairspray, perfume, deodorant, or body powder the day of surgery.? No jewelry (including any body piercings) or valuables the day of surgery, leave them at home.? Please take a shower or bath the night before, or the morning of, surgery with an antibacterial soap.? Wear comfortable, loose fitting clothing.? Children are encouraged to wear pajamas. - Jewelry must be removed prior to entering the operating room.? Rings and piercings that are not removed may be cut off. - The hospital will not accept responsibility for valuables.? - Please leave all valuables, including medications, at home the day of surgery. If you are going home after surgery, a licensed rolloff truck driver must drive you home.? - NO public transportation without another adult if you receive anesthesia. - We recommend that an adult stay with you for 24 hours following discharge. - We also recommend that you do not drive, make important decision, drink alcoholic beverages, or take any drugs that were not prescribed by your health care provider for at least 24 hours after your discharge time. For Pediatric surgeries, we recommend two adults accompany the child home. Follow any additional instructions given to you from your surgeon. VERBAL AND WRITTEN instructions given to __PATIENT and asked if any additional questions and then verbalized understanding. Patient advised to call surgeon office or pre surgery nurse liaison [phone] if any additional questions.
[2025-06-26 13:06] VITALS: BMI 28.2
[2025-06-26 13:54] VITALS: BP 119/70; PULSE 60; RESP 18; TEMP 36.8; O2SAT 99
--- NOTE | 2025-07-07 09:07 | PM.IMHP ---
H&P: HPI History of Present Illness Date/Time: 07/07/25 09:07 Chief Complaint: POP/SHAW Narrative: Note:?Yobany Snyder is a 60-year-old female who presents for evaluation of pelvic organ prolapse and associated symptoms. She reports experiencing a prolapsed vaginal wall, initially noticed on 05/09 while in the [place]. Since then, the prolapse has been persistent and is accompanied by bladder leakage. She describes the leakage as occurring both with urgency and during activities such as coughing and sneezing. She denies difficulty with voiding but notes the need to shift positions to urinate comfortably. She has been using Depends due to the leakage. She was hospitalized on Thursday due to severe lower back pain, which she attributes to the prolapse. Since then, she has been on bed rest. 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 She denies any history of straining or forceful voiding. She also reports recent episodes of diarrhea but does not believe this is related to the prolapse. She has an upcoming appointment with a retail account executive on Thursday, the , for further evaluation of gastrointestinal symptoms. Review of Systems Review of Systems: All systems reviewed & are unremarkable except as noted in HPI and below PMFSH Past Medical History Medical History Irritable bowel syndrome Diverticulitis Hyperthyroidism Surgical History Surgical History History of cholecystectomy Gastric bypass status for obesity H/O: hysterectomy Family History Family History Father Carcinoma of colon Mother Cerebrovascular accident Other Cancer Hypertension Social History Social History Smoking status: Never smoker Alcohol intake: current Alcohol use details: occasional Substance use: never Substance use type: does not use Do You Feel Safe in your Home?: Yes Lack of Transportation: No Lack of Food: Never True Current Housing: Decline to Answer Concerned About Future Housing: Decline to Answer Difficulty Paying Gas/Electric Bills: Decline to Answer Difficulty Paying for Meds: Decline to Answer Currently Unemployed: Decline to Answer Education: Decline to Answer Difficulty w/ Childcare or Family Care: Decline to Answer Living arrangements: with family Spiritual care concerns: No Meds Home Medications and Allergies Home Medications ?Medication ?Instructions ?Recorded ?Confirmed ?Type Lactobacillus acidophilus 10 mg PO DAILY 06/19/25 06/26/25 History (Acidophilus capsule) estradiol 1 mg tablet 1.5 mg PO DAILY 06/19/25 06/26/25 History levothyroxine 100 mcg capsule 100 mcg PO DAILY 06/19/25 06/26/25 History montelukast 10 mg tablet 10 mg PO DAILY 06/19/25 06/26/25 History MULTIVITAMIN IRON FREE 1 mg BYMOUTH DAILY 06/26/25 06/26/25 History colestipol 1 gram tablet 1 g PO BID 06/26/25 06/26/25 History peg 400-propylene glycol 0.4 %-0.3 1 drp EACH EYE BID PRN dry eye(s) 06/26/25 06/26/25 History % eye drops (Systane Ultra) Allergies Allergy/AdvReac Type Severity Reaction Status Date / Time doxycycline Allergy Severe Diarrhea Verified 06/26/25 13:09 adhesive tape Allergy rash Verified 06/26/25 13:07 ciprofloxacin (From Cipro) Allergy Abdominal Verified 06/26/25 13:07 Pain Exam Narrative: Note:? - General appearance: No acute distress. - Building nutrition: Well-developed, well-nourished. - Integumentary: Overall skin examination reveals no significant rashes. - Head and Neck: Head normocephalic atraumatic, trachea midline, goiter none, eye extraocular movements intact. - Chest and Lung: Quiet and even respiratory effort without the use of accessory muscles of respiration, no cough or grunting. - Breast: Breast exam not indicated. - Cardiovascular: Lower extremity edema: none, lower extremity varicosities: none. - Abdomen: Inspection abdomen flat, incisions well healed, palpation soft, non-rigid, no guarding. Female genitourinary: - External genitalia: Vulvar hair distribution N/A, introitus no discharge. - Urethral characteristics: Orthotopic, non-tender, no diverticulum, stress incontinence present, mobility minimal mobility. - Speculum and bimanual: - Cystocele: +4. - Vaginal apex: +1. - Rectocele: minimal. - Vaginal mucosa: atrophic. - Rectal: Normal anus and perineum, DON not indicated. - Neurologic: Alert and oriented x3. Active movement of all 4 extremities. - Pelvic floor muscle tone: normal. - Pelvic floor muscle tenderness: absent. - Lymphatic: No visible lymphadenopathy. Assessment and Plan Assessment and plan (1) Prolapse of vaginal vault after hysterectomy: Code(s): N99.3 - Prolapse of vaginal vault after hysterectomy Status: Acute (2) SHAW (stress urinary incontinence, female): Code(s): N39.3 - Stress incontinence (female) (male) Status: Acute Plan - We discussed the treatment options for pelvic organ prolapse, including observation, pelvic floor muscle exercises, physical therapy, pessary usage, and surgery, as well as each approach's specific risks and benefits. She opts for a sacral colpopexy. We specifically discussed the utilization of robotic sacral colpopexy. ? - She understands the risks of bleeding, infection, recurrence or prolapse, mesh exposure, damage to the bowel or urinary tract, open conversion, de claritza urinary urgency, urinary retention, post-operative stress urinary incontinence, dyspareunia, back pain, diskitis, and risks of anesthesia. In addition, she was provided written information on the etiology and treatment of pelvic organ prolapse. ? - After an extensive discussion she agrees to proceed with surgery. - We discussed the treatment options for stress urinary incontinence, including pelvic floor muscle rehabilitation, transurethral bulking agents, and mid-urethral sling procedures. She is most interested in the latter. ? - We discussed the alternatives, benefits, and risks. We discuss specifically the risks of bleeding, infection, failure to correct incontinence, damage to the urinary tract, vaginal mesh extrusion, urinary tract mesh erosion, obstructive voiding requiring a secondary procedure, de claritza or worsening irritative voiding symptoms, post-operative hip and leg pain, and the risk of anesthesia. We also discussed that treatment of stress incontinence is unlikely to improve overactive bladder symptoms if present. She was also counseled on post-operative activity restrictions. She wishes to proceed. - The patient presents with symptoms indicative of mixed urinary incontinence. The causes of both urge and stress incontinence were clarified to the patient. Urge incontinence results from an overactive bladder muscle, while stress incontinence stems from a weak urethral sphincter. ? - The patient is aware that these two forms of incontinence have distinct causes and require different treatment approaches. They recognize that addressing one type may not alleviate the other, and in some instances, a combination of therapies may be necessary.
[2025-07-10] VITALS (14 sets, daily range): BP systolic 102–133; BP diastolic 45–69; PULSE 63–99; RESP 11–18; TEMP 36.1; O2SAT 94–100
--- OUTSIDE RECORDS SUMMARY | 2025-07-10 02:21 | XMS_ITS | Encounter Summary ---
Author Organization [facility] Address [address] [place] [address] Care Team Providers Care Parcel Post Truck Driver Name Role Phone [place] Primary Care Provider Encounter Details Date Type Department Care Team (Late st Contact Info) Description 01/08/2024 Orders Only [address] [address] Gila Hills FNP [address] [place], [place] [id number] Social History Tobacco Use Types Packs/Day Years [...] Description 08/21/2025 1:00 PM CDT Office Visit [address] [address] G[place] FNP [address] [facility] [place] [address] documented as of this encounter Visit Diagnoses Not on filedocumented in this encounter Additional Health Concerns Health Status Noted Date Alive and well 12/23/2023 Assessment Noted Time PHQ-9 Depression Total Score: 0 01/27/20 20 8:27 AM CDT A fall risk assessment has been complete d for the patient 12/23/2023 3:22 PM CONTINUOUS IMPROVEMENT ANALYST documented as of this encounter Care Teams Parcel Post Truck Driver Relationship Specialty Start Date End Date [place] FNP [address] [facility] [place] [place] [address] PCP - General Family Medicine 06/17/19 documented as of this encounter
--- OUTSIDE RECORDS SUMMARY | 2025-07-10 02:21 | XMS_ITS | Encounter Summary ---
Author Organization [facility] Address [address] [place] [address] Care Team Providers Care Superintendent Board Mill Name Role Phone Yadira Baptiste MD Primary Care Provider [phone] Encounter Details Date Type Department Care Team (Latest Contact Info) Description 01/02/2009 Outpatient Historical [facility] Óscar Colon MD [address] [place] [address] Cholecystitis, Unspecified Social History Tobacco Use Types Packs/Day Years Used Date Smoking Tobacco: Never Assessed Comments Unknown Sex and Gender Information Value Date Recorded Sex Assigned at Not on file Legal Sex Female 3:42 AM FORK LIFT TRUCK OPERATOR Gender Identity Not on file Sexual Orientation Not on file documented as of this encounter Plan of Treatment Upcoming Encounters Date Type Department Care Team (Late st Contact Info) Description 07/25/2025 1:00 PM CDT Appointment [facility] Laboratory Services [facility] [address] [place] [address] Ramesh Dumas MD [address] [place] [address] 07/25/2025 2:00 PM CDT Office Visit [facility] Oncology and Hematology [address] [place] [phone] Ramesh Dumas MD [address] [place] [facility] [place] [phone] documented as of this encounter Procedures Procedure Name Priority Date/Time Associated Diagnosis Comments PATHOLOGY Routine 01/03/2009 9:46 AM FORK LIFT TRUCK OPERATOR POC GLUCOSE Routine 01/03/2009 7:05 AM FORK LIFT TRUCK OPERATOR documented in this encounter Results * PATHOLOGY (01/03/2009 9:46 AM FORK LIFT TRUCK OPERATOR) FINAL REPORT [facility] [address], [place] [address] Patient: RANDY LANDIS : 1965 Procedure Date: 01/03/2009 Accession Date: 01/03/2009 Case No: [id number] Ordering Dr: ÓSCAR COLON Case types AW, BW, FW, NW and SH are performed by [facility], [place], [place] SURGICAL PATHOLOGY & NON-GYNECOLOGIC CYTOPATHOLOGY REPORT [...] friable and averages 0.2 cm in thickness. Lap Winder sections, including the cystic duct margins, are submitted in cassette A1. LWL/PJS 01.04.2009 05:46 am Microscopic: Received are slides labeled [id number]. The gallbladder epithelium is intact and mildly reactive in appearance. Cholesterolosis is present. There are patchy, subepithelial infiltrates of chronic inflammatory cells. Foci of subepithelial fibrosis are also noted. DJG/LONI 01.04.2009 02:05 pm Staging Form: No. ELECTRONIC SIGNATURE FOR OTONIEL VÁZQUEZ M.D.- 01/04/09 03:46 pm INTERFACE SYSTEM 01/03/2009 9:46 AM FORK LIFT TRUCK OPERATOR Óscar Colon MD PATHOLOGY/CYTOLOGY ORDERABLES Fi nal Result Performing Organization Address [facility] de Phone Number INTERFACE SYSTEM Refer to clinic/hospital department * (ABNORMAL) POC GLUCOSE (01/03/2009 7:05 AM FORK LIFT TRUCK OPERATOR) GLUCOSE POC 140(H) 65 - 99 mg/dL [facility] Venous blood specimen (specimen) 01/03/2009 7:05 AM FORK LIFT TRUCK OPERATOR 01/03/2009 7:05 AM FORK LIFT TRUCK OPERATOR us Óscar Colon MD POINT OF CARE TESTING Final Resu lt Performing Organization Address [facility] Phone Number INTERFACE SYSTEM Refer to clinic/hospital department [facility] CLIA# [id number] [address] [place] [address] documented in this encounter Visit Diagnoses Diagnosis Cholecystitis, unspecified documented in this encounter Additional Health Concerns Infection Onset Date Last Indicated Resolved Time R/O GI Pathogen 05/30/2025 05/30/2025 05/30/2025 6:07 PM CDT R/O C. diff 05/30/2025 05/30/2025 05/30/2025 2:03 PM CDT documented as of this encounter Care Teams Superintendent Board Mill Relationship Specialty [place] [address] [place] [address] PCP - General Family Practice 05/30/25 documented as of this encounter
--- OUTSIDE RECORDS SUMMARY | 2025-07-10 02:21 | XMS_ITS | Clinical Summary ---
Author Organization [facility] Address [address] [facility] [place] [address] Care Team Providers Care Entertainment Centre Manager Name Role Phone Yadira Baptiste MD Primary Care Provider [phone] Source Comments [facility],non-owned Affiliates and Associated Physician Practices is amultiple site organization consisting of ambulatory clinics and hospital sitesin [place], [place], [place] and [place]. This disclosure is being madepursuant to the Care Everywhere program and may not contain all information available regarding this patient. 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 Not on file Not on file Last Filed Vital Signs Vital Sign Reading Time Taken Comments Blood Pressure 110/60 12/27/2020 9:02 AM QA SOFTWARE TESTER Pulse 52 12/27/2020 9:02 AM QA SOFTWARE TESTER Temperature 35.8 C (96.5 F) 12/27/2020 9:02 AM QA SOFTWARE TESTER Respiratory Rate 14 12/14/2020 9:26 AM QA SOFTWARE TESTER Oxygen Saturation 98% 12/27/2020 9:02 AM QA SOFTWARE TESTER Inhaled Oxygen Concentration - - Weight 93.9 kg (207 lb) 12/27/2020 9:02 AM QA SOFTWARE TESTER Height 172.7 cm (5' 8) 12/14/2020 5:59 AM QA SOFTWARE TESTER Body Mass Index 31.47 12/14/2020 5:59 AM QA SOFTWARE TESTER Plan of Treatment Health Maintenance Due Date [...] EXAM WITH MONOFILAMENT 11/26/2020 DIABETES-HGB A1C 11/26/2020 DEPRESSION SCREENING 11/02/2024 DIABETES - URINE PROTEIN SCREENING 11/02/2024 COVID-19 VACCINE (1 - season) 2025 INFLUENZA VACCINE (#1) 2025 10/24/2010 Respiratory Syncytial [...] CDT) BUN 10 7.0 - 17.0 mg/dl [facility] Sodium 138 137 - 145 mmol/L [facility] Potassium 3.8 3.6 - 5.0 mmol/L [facility] Chloride 109(H) 98.0 - 107.0 mmol/L [facility] CO2 26 22.0 - 30.0 mEq/L [facility] Anion Gap 3.3 [facility] Glucose 72 70 - 105 mg/dl [facility] Creatinine 0.5(L) 0.52 - 1.05 mg/dl [facility] Calcium 8.1(DL) 8.4 - 10.2 mg/dl [facility] eGFR by MDRD 132.25 mL/min/1.7 3m2 [facility] BLOOD SPECIMEN / Unknown 06/13/2011 4:45 AM CDT 06/13/2011 5:25 AM CDT us Aiden Kapoor DO LAB - CHEMISTRY ORDERABLES Final Result [facility] [address] [place] [address] from Last 3 Months or Most Recently Relevant to Health Maintenance Additional Health Concerns Infection Onset Date Last Indicated C Diff Hx 12/14/2020 12/14/2020 [place] [facility] [place]: [facility] [id number] [place] [address] Advance Directives * FULL RESUSCITATION (Latest Code Status on File) Date Activated Date Inactivated Comments 06/12/2011 4:00 PM 06/15/2011 1:29 AM * Full Code Date Activated Date Inactivated Comments 10/22/2010 5:23 PM 10/25/2010 11:15 PM Care Teams Entertainment Centre Manager Relationship Specialty Start Date End Date Yadira Baptiste MD [address] [place] [address] PCP - General Family Medicine 11/26/20
--- OUTSIDE RECORDS SUMMARY | 2025-07-10 02:21 | XMS_ITS | Encounter Summary ---
Author Organization [facility] Address [address] [place] [address] Care Team Providers Care Knife Operator Name Role Phone Gabriele Wyatt MD Primary Care Provider [phone] Teresa Vasquez MD Primary Care Provider + [phone] Yadira Baptiste MD Primary Care Provider [phone] Encounter Details Date Type Department Care Team (Late st Contact Info) Description 10/30/2011 [facility]NAL [facility] [place] [address] [place] [address] Social History Tobacco Use Types Packs/Day Years Used Date Smoking Tobacco: Never Smokeless Tobacco: Never Alcohol Use Standard Drinks/Week Comments Yes 0 (1 standard drink = 0.6 oz pur e alcohol) Rare Comments No Sex and Gender Information Value Date Recorded Sex Assigned at Not on file Legal Sex Female 11:33 AM REGISTERED PUBLIC SURVEYOR Gender Identity Not on file Sexual Orientation Not on file documented as of this encounter Plan of Treatment Not on file documented as of this encounter Visit Diagnoses Not on filedocumented in this encounter Additional Health Concerns Infection Onset Date Last Indicated Resolved Time C DIFF 06/16/2011 06/16/2011 12/14/2020 10:3 8 AM REGISTERED PUBLIC SURVEYOR C Diff Hx 12/14/2020 12/14/2020 documented as of this encounter Care Teams Knife Operator Relationship Specialty Start Date End Date Gabriele Wyatt MD [address] [address] PCP - General 11/18/10 08/25/16 Teresa Vasquez MD [address] [facility], [phone] PCP - General Family Medicine 08/26/16 11/25/20 Yadira Baptiste MD [address] [place] [address] PCP - General Family Medicine 11/26/20 documented as of this encounter
--- OUTSIDE RECORDS SUMMARY | 2025-07-10 02:21 | XMS_ITS | Encounter Summary ---
Author Organization [facility] Address [address] [place] [address] Care Team Providers Care Packaging Technician Name Role Phone [place] Primary Care Provider Encounter Details Date Type Department Care Team (Late st Contact Info) Description 10/13/2024 Orders Only [address] [address] Provider, MD Danyelle [address] [place] [address] Social History Tobacco Use Types Packs/Day [...] Description 08/21/2025 1:00 PM CDT Office Visit [address] [address] [place] FNP [address] [place], [place] [address] documented as of this encounter Procedures Procedure Name Priority Date/Time Associated Diagnosis Comments HM DEXA SCAN Routine 10/12/2024 2:33 PM LOTUS NOTES ADMINISTRATOR HM MAMMOGRAPHY Routine 10/12/2024 2:30 PM LOTUS NOTES ADMINISTRATOR documented in this encounter Results * HM DEXA SCAN (10/12/2024 2:33 PM LOTUS NOTES ADMINISTRATOR) us Historical Provider MD HEALTH MAINTENANCE Final Result * HM MAMMOGRAPHY (10/12/2024 2:30 PM LOTUS NOTES ADMINISTRATOR) us Historical Provider MD HEALTH MAINTENANCE Final [...] documented as of this encounter Care Teams Packaging Technician Relationship Specialty Start Date End Date G[place] FNP [address] [facility] [place] [address] PCP - General Family Medicine 06/17/19 documented as of this encounter
--- OUTSIDE RECORDS SUMMARY | 2025-07-10 02:21 | XMS_ITS | Patient Health Record ---
Author Organization [facility] Address [address] [facility] [address] [place] [address] Care Team Providers Care Metal Shaping Machine Operator Name Role Phone Emile LAU, Yadira Primary Care Provider Unavail able Julianne Hood Unavailable [phone] Allergies Allergen (clinical drug ingredient) Drug/Non Drug Allergy documented on EMR Reaction Allergy Type Onset Date Status bacitracin Antibiotic diarrhea Drug Allergy Activ e Results Component Value Reference Range Notes CALPROTECTIN, STOOL Reviewed date:06/20/2025 09:41:54 AM Interpretation: Performing Lab:[facility] [place], [facility] N[facility], Phone - [phone], Director - Yoselyn Notes/Report: Clinical Information:SRC:ST Calprotectin, Fecal 253 0-120 ug/g Concentration Interpretation Follow-Up < 5 - 50 ug/g Normal None >50 -120 ug/g Borderline Re-evaluate in 4-6 weeks >120 ug/g Abnormal Repeat as clinically indicated GIARDIA AG, EIA, STOOL Reviewed date:06/20/2025 09:41:41 AM Interpretation: Performing Lab:[facility] [place], [facility], Phone - [phone], Director - Yoselyn Notes/Report: Clinical Information:SRC: Giardia lamblia Ag, EIA Negative Negative Request Problem TNP Test not performed. Consistency of stool specimen too solid for analysis. TEST: [id number] Osmolality, Fecal Osmolality, Fecal Reviewed date:06/20/2025 09:39:01 AM Interpretation: Performing Lab:[employer] [place], [facility], Phone - [phone], Director - Yoselyn Notes/Report: Clinical Information:SRC:ST Osmolality, Fecal TNP Test not performed. Consistency of stool specimen too solid for analysis. Fecal Fat, Quantitative 72 h our Reviewed date:06/21/2025 07:59:39 AM Interpretation: Performing Lab:[facility], Evelyn Marc, [place], Phone - [phone], Director - Yoselyn Notes/Report: Test(s) 599640-[id number],(Fecal Lipids)Qn was developed and its performance characteristics determined by [facility]. It has not been cleared or approved by the Food and Drug Administration. Fecal Weight (Total) 393 Fat,(Fecal Lipids)Qn 6.1 0.0-7.1 g/24 hr 72 H OURS Reason For Referral No Information Medications Medication SIG (Take, Route, Frequency, Duration) Notes Start Date End Date Status Probiotic Active Montelukast Sodium A ctive Levothyroxine Sodium Active OTC/Vitamins Vit D (50,000iu weekly), Iron Free Vitamin Active Colestipol HCl 1 GM 2 tablet Orally Twice a day for 30 day(s) 06/07/2025 Active Estradiol Active Social History Tobacco Use: Social History Observation Description Date Details (start date - stop date) Never Smoker NA - NA Tobacco Control (Standard) Question Answer Notes Tobacco use: Nonsmoker Problems Problem Type SNOMED Code ICD Code Onset Dates Problem Status W/U Status Risk Notes Problem [id number] Fecal incontinence (R15.9) Active confirmed New issue [...] N/A Encounters Encounter Location Date Provider Diagnosis [facility], [facility] [address] [facility] [address] Jones[address] [place] [phone] 06/07/2025 Julianne Ancha Diarrhea R19.7 ; Fec al incontinence R15.9 ; Family history of colon cancer Z80.0 and Flatulence R14.3 [facility], [address] [place] [address] 05/31/2025 Julianne Markusa [facility] [address] [facility] [place] [phone] 06/08/20[facility] [address] [facility] [place] [address] 06/20/2025 Julianne Hood [facility], [facility] [address] [address] 07/04/2025 Julianne Hood Diarrhea R19.7 Assessments Encounter Date Diagnosis (ICD Code) Assessment [...] tentatively planned for first week of July. 07/04/2025 Diarrhea (ICD-10 - R19.7) Complicated issue. She has a longstanding history of IBS-D but also was apparently recently diagnosed with Giardia infection. 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 Ddx includes SIBO, microscopic colitis, IBD. 06/07/2025 Family history of colon cancer (ICD-10 [...] spent reviewing the chart before the visit, [id number] time, time after visit for documentation and orders was greater than 45 minutes. Plan Of Treatment Pending Test Test Name Order Date Fecal Fat, Quantitative 72 hour 06/07/20 25 Initiate SIBO 06/07/2025 Next Appt Details Provider Name:Julianne Hood, 08:00:00 AM, [address] [place] [address] [address], [place], [address], Provider Name:Shante zelaya, 08/18/2025 09:45:00 AM, [address] [facility] [address], [place], [address], Insurance Providers Payer Name Payer Address Payer Phone Subscriber Number Group Number Insured Name Patient Relationship to Insured Coverage Start Date Coverage End Date [facility] [address] [place] [address] [id number] Yobany Snyder Self - patient is the insured [facility] E2 [address] [address] [place] [address] [id number] Eliseo Snyder Spouse - patient is the spouse of the insured Medical (General) History Medical History History ICD Code IBS Diverticulosis Thyroid Disease Surgical History Surgery Date(Month/Year) Colonoscopy (Outside Provider) 2022 Endoscopy (Outside Provider) 2022 Cholecystectomy Gastric Bypass
--- OUTSIDE RECORDS SUMMARY | 2025-07-10 02:21 | XMS_ITS | Clinical Summary ---
Author Organization [facility] Address [address] [facility] [address] [place] [address] Phone Care Team Providers Care Assistant Broker Name Role Phone Yadira Baptiste MD Primary Care Provider [phone] Allergies Active Allergy Reactions Criticality Noted Date [...] Noted Date Diagnosed Date Iron deficiency anemia lauraon lele to inadequate dietary iron intake 10/27/2024 Bariatric [...] Encounters Date Type Department Care Team Description 06/28/2025 External Device Data [facility] Provider, Abstract 06/27/2025 External Device Data [facility] Provider, Abstract 06/27/2025 External Device Data [facility] Provider, Abstract 06/23/2025 6:58 AM CDT - 06/23/2025 11:59 PM CDT Hospital Encounter [facility] Ultrasound [address] [place] [address] Sanket Blakely MD Discharge Disposition: Home or Self Care 06/19/2025 Transcribe Orders Central Test Scheduling [address] [place] [phone] Sanket Blakely MD 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) 06/07/2025 External Device Data [facility] ABSTRACTION Provider, Abstract 06/06/2025 External Device Data [facility] ABSTRACTION Provider, Abstract 06/06/2025 External Device Data [facility] ABSTRACTION Provider, Abstract 05/31/2025 Abstract [facility] Gastroenter[facility] [place] [address] [place] [address] Provider, Abstract 05/30/2025 1:49 PM CDT - 05/30/2025 5:03 PM CDT Emergency [facility] Emergency Department [address] [facility] [place] [address] Bo Paula DO Abdominal pain, acute, left lower quadrant (Primary Dx); Acute diarrhea Discharge Disposition: Home or Self Care 05/30/2025 Travel 05/19/2025 Telephone [facility] [place] [address] [address] [address] [place] [address] Provider, Abstract Needs Appointment 05/17/2025 External Device Data [facility] ABSTRACTION Provider, Abstract 05/17/2025 External Device Data [facility]STRA[facility] Provider, Abstract 05/17/2025 External Device Data [facility]STRACTION Provider, Abstract 05/17/2025 External Device Data [facility]STRA[place] Provider, Abstract 05/16/2025 External Device Data [facility] ABSTRACTION Provider, Abstract 05/13/2025 Results Follow-Up [facility] Emergency Clinical Decision Unit [address] [place] [address] Silvia Layne PA-C URINE CULTURE 05/11/2025 4:34 PM CDT - 05/11/2025 11:48 PM CDT Emergency [facility] Emergency Department [address] [place] [address] Yaakov Otero MD Feldmeier, Michael, MD Pelvic [...] on file Legal Sex Female 3:42 AM WEB SUPPORT ENGINEER Gender Identity Not on file Sexual Orientation [...] Info) Description 07/25/2025 1:00 PM CDT Appointment [facility] Laboratory Services [facility] [address] [facility] [place] [phone] Ramesh Dumas MD [address] [place] [address] 07/25/2025 2:00 PM CDT Office Visit [facility] Oncology and Hematology [address] [place] [address] Ramesh Dumas MD [address] [place] [address] Health Maintenance Due Date Last Done Comments DIABETES ANNUAL FOOT EXAM 02/20/1982 DIABETES ANNUAL RETINAL EXAM 02/20/1982 DIABETES MICROALBUMIN ANNUAL SCREEN 02/20/1982 LDL CHOLESTEROL ANNUAL 02/20/1982 COLORECTAL SCREENING 02/20/2009 Colorectal Cancer Screening 02/20/2009 FIT-DNA Q 3 years 02/20/2009 FIT/FOBT Q 1 year 02/20/2009 Flex Sig/CT Colonography Q 5 years 02/20/2009 ZOSTER VACCINE (1 of 2) 02/20/2014 INFLUENZA VACCINE (#1) 2025 , 09/11/2022, 09/11/2021 COVID-19 Vaccine (5 - 2024-2 6 season) 2025 09/11/2022, 09/11/2021, 12/06/2020, Additional history exists BREAST CANCER SCREENING 10/12/2025 10/12/20, 04/03/2023, 04/03/2023, Additional history exists DIABETES HBA1C [...] OR WO CAD Routine 10/12/2024 2:35 PM WEB SUPPORT ENGINEER Encounter for screening mammogram for malignant neoplasm [...] FREDDY MCKEON D.O. Date: 06/23/2025 Time: 10:18 Narrative 06/23/2025 10:29 AM CDT EXAM: PELVIC [...] nucleic acids detected. 05/30/2025 6:07 PM CDT [facility] Stool STOOL SPECIMEN / Unknown 05/30/2025 4:43 PM CDT 05/30/2025 4:43 PM CDT Narrative [facility] - 05/30/2025 6:07 PM CDT The [...] DO MICROBIOLOGY - GENERAL ORDERABLES Final Result [facility] [id number] [address] [place] [address] * CT ABDOMEN PELVIS W CONTRAST (05/30/2025 [...] time period is included. Pathologist [facility] WBC 5.7 3.5 - 11.0 K/uL 05/30/2025 2:47 PM CDT [facility] RBC 4.75 3.80 - 5.00 M/uL 05/30/2025 2:47 PM CDT [facility] HEMOGLOBIN 14.5 11.7 - 15.7 g/dL 05/30/2025 2:47 PM CDT [facility] HEMATOCRIT 42.1 35.0 - 47.0 % 05/30/2025 2:47 PM [facility] - [facility] MCV 88.5 80.8 - 100.0 fL 05/30/2025 2:47 PM CDT [facility] MCH 30.5 26.4 - 34.0 pg 05/30/2025 2:47 PM CDT [facility] MCHC 34.5 31.4 - 36.3 g/dL 05/30/2025 2:47 PM CDT [facility] RDW 12.8 11.0 - 15.0 % 05/30/2025 2:47 PM CDT [facility] PLATELETS 213 150 - 450 K/uL 05/30/2025 2:47 PM CDT [facility] MPV 9.0 7.5 - 11.2 fL 05/30/2025 2:47 PM CDT [facility] NEUTROPHILS 58 50 - 75 % 05/30/2025 2:47 PM CDT [facility] LYMPHOCYTES 33 19 - 48 % 05/30/2025 2:47 PM CDT [facility] MONOCYTES 7 0 - 10 % 05/30/2025 2:47 PM CDT [facility] EOSINOPHILS 2 0 - 6 % 05/30/2025 2:47 PM CDT [facility] BASOPHILS 1 0 - 2 % 05/30/2025 2:47 PM CDT [facility] NEUTROPHIL ABSOLUTE 3.34 >=0.50 K/uL 05/30/2025 2:47 PM CDT [facility] LYMPHOCYTE ABSOLUTE 1.87 K/uL 05/30/2025 2:47 PM CDT [facility] MONOCYTE ABSOLUTE 0.39 K/uL 05/30/2025 2:47 PM CDT [facility] EOSINOPHIL ABSOLUTE 0.09 K/uL 05/30/2025 2:47 PM CDT [facility] BASOPHILS ABSOLUTE 0.03 K/uL 05/30/2025 2:47 [facility] Blood Venipuncture / Unknown 05/30/2025 2:39 PM CDT 05/30/2025 2:39 PM CDT Bo Paula DO HEMATOLOGY ORDERABLES F inal Result [facility] [id number] [address] [place] [phone] * LIPASE (05/30/2025 2:39 PM CDT) Only the most recent of2 resultswithin the time period is included. LIPASE 32 13 - 60 U/L 05/30/2025 2:57 PM T [facility] Blood Venipuncture / Unknown 05/30/2025 2:39 PM CDT 05/30/2025 2:39 PM CDT Bo Paula DO CHEMISTRY ORDERABLES nal Result Performing Organization Address City/[facility]/ZIP Co de Phone Number [facility] [id number] [address] [place] [phone] * (ABNORMAL) COMPREHENSIVE METABOLIC PANEL (05/30/2025 2:39 PM CDT) Only the most recent of2 resultswithin the time period is included. SODIUM 141 136 - 145 mmol/L 05/30/2025 2:57 PM [facility] POTASSIUM 3.9 3.2 - 4.9 mmol/L 05/30/2025 2:57 PM T [facility] CHLORIDE 110 98 - 111 mmol/L 05/30/2025 2:57 PM [facility] CO2 25 22 - 29 mmol/L 05/30/2025 2:57 PM [facility] CALCIUM 8.7 8.4 - 10.5 mg/dL 05/30/2025 2:57 PM [facility] BUN 10 6 - 24 mg/dL 05/30/2025 2:57 PM [facility] CREATININE 0.60 0.50 - 1.20 mg/dL 05/30/2025 2:57 PM [facility] GLUCOSE 98 70 - 115 mg/dL 05/30/2025 2:57 PM [facility] TOTAL PROTEIN 6.2 6.0 - 8.4 g/dL 05/30/2025 2:57 PM CDT [facility] ALBUMIN 4.2 3.5 - 5.2 g/dL 05/30/2025 2:57 PM T [facility] BILIRUBIN TOTAL 0.3 0.3 - 1.2 mg/dL 05/30/2025 2:57 PM T [facility] ALKALINE PHOSPHATASE 84 40 - 150 U/L 05/30/2025 2:57 PM T [facility] AST 27 <=33 U/L 05/30/2025 2:57 PM T [facility] ALT 27 <=55 U/L 05/30/2025 2:57 PM [facility] GFR >60 >=60 mL/min/1.7 3 sq meter 05/30/2025 2:57 PM T [facility] Comment:eGFR calculated with 2020 CKD-EPI equation. Vegetarian diet, extremely high or low muscle mass, and may affect results. Cystatin C with Glomerular Filtration Rate is a suitable alternative for these patients. ANION GAP 6(L) 7 - 16 mmol/L 05/30/2025 2:57 PM CDT [facility] Blood Venipuncture / Unknown 05/30/2025 2:39 PM CDT 05/30/2025 2:39 PM CDT Bo Paula DO CHEMISTRY ORDERABLES Fi nal Result [facility] [id number] [address] [place] [phone] * EXTRA TUBE (URINE SANTIAGO) (05/30/2025 2:15 PM CDT) Urine URINE SPECIMEN OBTAINED BY CLEAN CATCH PROCEDURE / Unknown Collection / Unknown 05/30/2025 2:15 PM CDT 05/30/2025 2:17 PM CDT Bo Paula DO URINE ORDERABLES Final Result [facility] [id number] [address] [place] [address] * (ABNORMAL) URINALYSIS WITH REFLEX MICROSCOPIC (05/30/2025 2:15 PM CDT) Only the most recent of2 resultswithin the time period is included. COLOR UA Pale Yellow Pale to Dark Yellow 05/30/2025 2:33 PM CDT [facility] CLARITY UA Cloudy(A) Clear 05/30/2025 2:33 PM CDT [facility] SPECIFIC GRAVITY UA 1.009 1.005 - 1.030 05/30/2025 2:33 PM CDT [facility] PH UA 5.5 5.0 - 9.0 05/30/2025 2:33 PM CDT [facility] LEUKOCYTE ESTERASE UA Negative Negative 05/30/2025 2:33 PM CDT [facility] NITRITE UA Negative Negative 05/30/2025 2:33 PM CDT [facility] PROTEIN UA Negative Negative 05/30/2025 2:33 PM CDT [facility] GLUCOSE UA Negative Negative 05/30/2025 2:33 PM CDT [facility] KETONES UA Negative Negative 05/30/2025 2:33 PM CDT [facility] UROBILINOGEN UA Normal Normal mg/dL 05/30/2025 2:33 PM CDT [facility] BILIRUBIN UA Negative Negative 05/30/2025 2:33 PM CDT [facility] BLOOD UA Trace(A) Negative 05/30/2025 2:33 PM CDT [facility] WBC UA 0-2 0 - 2 /hpf 05/30/2025 2:33 PM CDT [facility] RBC UA 0-2 0 - 2 /hpf 05/30/2025 2:33 PM CDT [facility] BACTERIA UA 1+(A) Negative /hpf 05/30/2025 2:33 PM CDT [facility] EPITHELIAL CELLS, URINE >25(A) 0 - 5 /hpf 05/30/2025 2:33 PM CDT [facility] Urine URINE SPECIMEN OBTAINED BY CLEAN CATCH PROCEDURE / Unknown Collection / Unknown 05/30/2025 2:15 PM CDT 05/30/2025 2:17 PM CDT Bo Paula DO URINE ORDERABLES Final Result Performing Organization Address [facility] Co de Phone Number [facility] [id number] [address] [place] [phone] * URINE CULTURE (05/30/2025 2:14 PM CDT) Only the most recent of2 resultswithin the time period is included. CULTURE Polymicrobial growth consistent with normal urethral rinku and/or colonizing bacteria 06/01/2025 7:13 AM CDT [facility] Urine URINE SPECIMEN OBTAINED BY CLEAN CATCH PROCEDURE / Unknown Collection / Unknown 05/30/2025 2:14 PM CDT 05/30/2025 2:18 PM CDT Narrative [facility] - 06/01/2025 7:13 AM CDT Growth of skin and/or urogenital rinku suggests possible improper collection. Please resubmit in clinically indicated. Bo Paula DO MICROBIOLOGY - GENERAL ORDERABLES Final Result Performing Organization Address [facility] Co de Phone Number [facility] [id number] [address] [place] [phone] * MAMMO 3D JENA SCREEN BILAT W OR WO CAD (10/12/2024 2:35 PM WEB SUPPORT ENGINEER) Anatomical Region Laterality Modality Breast Bilateral Mammography Impressions 10/12/2024 5:40 PM WEB SUPPORT ENGINEER : No mammographic evidence of malignancy. BI-RADS ASSESSMENT: 1 - Negative RECOMMENDATION: Routine annual screening mammography. Narrative 10/12/2024 5:40 PM WEB SUPPORT ENGINEER EXAM: MAMMO SCRN BILAT 3D JENA W OR WO CAD INDICATION: Screening COMPARISON: Comparison is made to previous examinations. BREAST COMPOSITION: There are scattered areas of fibroglandular density. FINDINGS: There has been no significant interval change. There are no suspicious masses, calcifications, or areas of architectural distortion. [place] L[employer] CLASSIFIER MAMMO ORDERABLES Final Result from Last 3 Months or Most Recently Relevant to Health Maintenance Insurance [facility] CHO[facility] [id number] Care Teams Assistant Broker Relationship Specialty Start Date End Date Yadira Bpatiste MD [address] [place] [address] PCP - General Family Practice 05/30/25
--- OUTSIDE RECORDS SUMMARY | 2025-07-10 02:21 | XMS_ITS | Encounter Summary ---
Author Organization [facility] Address [address] [place] [address] Care Team Providers Care Store Clerk Cashier Name Role Phone Yadira Baptiste MD Primary Care Provider [phone] Encounter Details Date Type Department Care Team (Late Contact Info) Description 01/06/2009 Outpatient Historical [facility] [place], Authorized P NO ADDRESS ON FILE Adalberto Jara MD [address] [address] Rodolfo Smith MD NO ADDRESS ON FILE Social History Tobacco Use Types Packs/Day Years Used Date Smoking Tobacco: Never Assessed Comments Unknown Sex and Gender Information Value Date Recorded Sex Assigned at Not on file Legal Sex Female 3:42 AM MANUFACTURING TECHNICIAN Gender Identity Not on file Sexual Orientation Not on file documented as of this encounter Plan of Treatment Upcoming Encounters Date Type Department Care Team (Late Contact Info) Description 07/25/2025 1:00 PM CDT Appointment [facility] Laboratory Services [facility] [address] [place] [phone] Ramesh Dumas MD [address] [place] [phone] 07/25/2025 2:00 PM CDT Office Visit [facility] [address] [place] [phone] Ramesh Dumas MD [address] [place] [phone] documented as of this encounter Procedures Procedure Name Priority Date/Time Associated Diagnosis Comments PATHOLOGY Routine 01/09/2009 1:21 PM CDT POC GLUCOSE Routine 01/09/2009 1:09 PM CDT C. DIFFICILE DETECTION Routine 9 12:56 PM CDT OVA AND PARASITE SCREEN Routine 01/10/20 09 12:56 PM CDT STOOL CULTURE W/SHIGA TOXIN [...] CDT POC GLUCOSE Routine 01/07/2009 1:12 AM MANUFACTURING TECHNICIAN C. DIFFICILE DETECTION Stat 9 11:55 PM MANUFACTURING TECHNICIAN CTA CHEST W WO CONTRAST Routine 01/07/20 09 10:49 PM MANUFACTURING TECHNICIAN ED HOLD Stat 01/06/2009 8:45 PM MANUFACTURING TECHNICIAN CBC WITH DIFFERENTIAL Stat 01/06/2009 8:45 PM MANUFACTURING TECHNICIAN URINALYSIS WITH MICROSCOPIC Stat 01/06/2009 8:45 PM MANUFACTURING TECHNICIAN LIPASE Stat 01/06/2009 8:45 PM MANUFACTURING TECHNICIAN COMPREHENSIVE METABOLIC PANEL Stat 01/06/2009 8:45 PM MANUFACTURING TECHNICIAN documented in this encounter Results * PATHOLOGY (01/09/2009 1:21 PM CDT) FINAL REPORT [facility] [address] [place], [place] [address] Patient: RANDY SNYDER : 1965 Procedure Date: 01/09/2009 Accession Date: 01/09/2009 Case No: [id number] Ordering Dr: LEIDY CHRISTIAN Case types AW, BW, FW, NW and SH are performed by [facility], [place], [place] SURGICAL PATHOLOGY & NON-GYNECOLOGIC CYTOPATHOLOGY REPORT [...] The specimen is submitted entirely labeled B1. CHRISTINE/LONI 01.10.2009 08:01 am Microscopic: The slides are labeled Randy Snyder and [id number]. The biopsies from the small intestine show [...] significant thickening of the subluminal collagen table. JCL/KENZIE 01.10.2009 02:01 pm Staging Form: No. ELECTRONIC SIGNATURE FOR CHRISTIANO AMARAL M.D.- 01/11/09 00:41 am INTERFACE SYSTEM 01/09/2009 1:21 PM CDT us Leidy Christian MD PATHOLOGY/CYTOLOGY ORDERABLE S Final Result Performing Organization Address City/[facility] Co de Phone Number INTERFACE SYSTEM Refer to clinic/hospital department * (ABNORMAL) POC GLUCOSE (01/09/2009 1:09 PM CDT) COMMENT, GLU POC Notified RN [facility] GLUCOSE POC 130(H) 65 - 99 mg/dL [facility] Venous blood specimen (specimen) 01/09/2009 1:09 PM CDT 01/09/2009 1:09 PM CDT us Rodolfo Smith MD POINT OF CARE TESTING Final R esult Performing Organization Address [facility] de Phone Number INTERFACE SYSTEM Refer to clinic/hospital department [facility] CLIA# [id number] [address] [place] [address] * OVA AND PARASITE SCREEN (01/09/2009 12:56 PM CDT) PRELIMINARY REPORT Pending [facility] FINAL REPORT Concentratio n: No ova or parasites seen. Trichrome: No ova or parasites seen. [facility] Stool specimen (specimen) 01/09/2009 12:56 PM CDT 01/09/2009 1:31 PM CDT Narrative INTERFACE SYSTEM - 01/11/2009 3:37 PM CDT Performed by [employer] [address] Performed by [facility], [address] [place] [address] us Rodolfo Smith MD MICROBIOLOGY - GENERAL ORDERA BLES Final Result Performing Organization Address [facility] Co de Phone Number INTERFACE SYSTEM Refer to clinic/hospital department [facility] CLIA# [id number] [address] [place] [address] * STOOL CULTURE (01/09/2009 12:56 PM CDT) PRELIMINARY REPORT No Salmonella isolated. No Shigella isolated. No Escherichia coli serogroup O157:H7 isolated. [facility] FINAL REPORT No Salmonella isolated. No Shigella isolated. No Escherichia coli serogroup O157:H7 isolated. No Camplylobacter isolated. [facility] Stool specimen (specimen) 01/09/2009 12:56 PM CDT 01/09/2009 1:30 PM CDT Rodolfo Smith MD MICROBIOLOGY - GENERAL ORDERA BLES Final Result Performing Organization Address [facility] de Phone Number INTERFACE SYSTEM Refer to clinic/hospital department [facility] CLIA# [id number] [address] [place] [address] * CLOSTRIDIUM DIFFICILE TOXIN (01/09/2009 12:56 PM CDT) FINAL REPORT NO Clostridium difficile Toxin A or B detected by EIA. A negative result does not rule out C. difficile associated diarrhea or colitis. [facility] Stool specimen (specimen) 01/09/2009 12:56 PM CDT 01/09/2009 1:30 PM CDT Rodolfo Smith MD MICROBIOLOGY - GENERAL ORDERA BLES Final Result Performing Organization Address City/[facility] de Phone Number INTERFACE SYSTEM Refer to clinic/hospital department [facility] CLIA# [id number] [address] [place] [address] * (ABNORMAL) POC GLUCOSE (01/09/2009 5:36 AM CDT) COMMENT, GLU POC Notified RN [facility] GLUCOSE POC 130(H) 65 - 99 mg/dL [facility] Venous blood specimen (specimen) 01/09/2009 5:36 AM CDT 01/09/2009 5:36 AM CDT us Rodolfo Smith MD POINT OF CARE TESTING Final R esult Performing Organization Address [facility] de Phone Number INTERFACE SYSTEM Refer to clinic/hospital department [facility] CLIA# [id number] [address] [place] [address] * (ABNORMAL) POC GLUCOSE (01/08/2009 9:29 PM CDT) [facility] GLUCOSE POC 111(H) 65 - 99 mg/dL [facility] Venous blood specimen (specimen) 01/08/2009 9:29 PM CDT 01/08/2009 9:29 PM CDT us Rodolfo Smith MD POINT OF CARE TESTING Final R esult Performing Organization Address [facility] Phone Number INTERFACE SYSTEM Refer to clinic/hospital department [facility] CLIA# [id number] [address] [place] [address] * TRANSGLUTAMINASE IGG ANTIBODY (01/08/2009 9:20 PM CDT) [facility] TRANSGLUTAMINASE IGG AB <3 <7 U/mL [facility] Comment: Reference range: <7 U/mL Negative 7-10 U/mL Equivocal >10 U/mL Positive Lab test performed by: [employer] [address] [place] [phone] ADA MACIEL MD Blood specimen (specimen) 01/08/2009 9:20 PM CDT 01/08/2009 9:29 PM CDT us Leidy Christian MD CHEMISTRY ORDERABLES Final R esult Performing Organization Address City/[facility] de Phone Number INTERFACE SYSTEM Refer to clinic/hospital department [facility] CLIA# [id number] [address] [place] [address] * IGA (01/08/2009 9:20 PM CDT) IGA 131.7 87.0 - 421.0 mg/dL [facility] Blood specimen (specimen) 01/08/2009 9:20 PM CDT 01/08/2009 9:29 PM CDT us Leidy Christian MD CHEMISTRY ORDERABLES Final R esult Performing Organization Address [facility] de Phone Number INTERFACE SYSTEM Refer to clinic/hospital department [facility] CLIA# [id number] [address] [place] [address] * (ABNORMAL) POC GLUCOSE (01/08/2009 5:16 PM CDT) GLUCOSE POC 113(H) 65 - 99 mg/dL [facility] Venous blood specimen (specimen) 01/08/2009 5:16 PM CDT 01/08/2009 5:16 PM CDT us Rodolfo Smith MD POINT OF CARE TESTING Final R esult Performing Organization Address [facility] de Phone Number INTERFACE SYSTEM Refer to clinic/hospital department [facility] CLIA# [id number] [address] [place] [address] * (ABNORMAL) POC GLUCOSE (01/08/2009 12:05 PM CDT) GLUCOSE POC 157(H) 65 - 99 mg/dL [facility] Venous blood specimen (specimen) 01/08/2009 12:05 PM CDT 01/08/2009 12:05 PM CDT us Rodolfo Smith MD POINT OF CARE TESTING Final R esult Performing Organization Address City/[facility] de Phone Number INTERFACE SYSTEM Refer to clinic/hospital department [facility] CLIA# [id number] [address] [place] [address] * (ABNORMAL) POC GLUCOSE (01/08/2009 6:18 AM CDT) GLUCOSE POC 142(H) 65 - 99 mg/dL [facility] Venous blood specimen (specimen) 01/08/2009 6:18 AM CDT 01/08/2009 6:18 AM CDT Adalberto Jara MD POINT OF CARE TESTING Final Re sult INTERFACE SYSTEM Refer to clinic/hospital department [facility] CLIA# [id number] [address] [place] [address] * (ABNORMAL) BASIC METABOLIC PANEL (01/08/2009 5:45 AM CDT) Pathologist [facility] BUN 6 6 - 20 mg/dL [facility] CHLORIDE 107 96 - 108 mmol/L [facility] GLUCOSE 126(H) 65 - 99 mg/dL [facility] SODIUM 137 135 - 145 mmol/L [facility] CALCIUM 8.0(L) 8.6 - 10.2 mg/dL [facility] CO2 22 22 - 30 mmol/L [facility] CREATININE 0.45(L) 0.51 - 0.95 mg/dL [facility] POTASSIUM 3.7 3.5 - 4.9 mmol/L [facility] GFR, >60 >=60 mL/min/1. [address] [facility] GFR >60 >=60 mL/min/1. [address] [facility] Comment: Modification of Diet in Renal Disease (MDRD) study formula. Estimated GFR rate interpretative information for both Americans and non- Americans is available on the [facility] Intranet at: [email or web address] Select: Lab Policies and Procedures Select: Reference Ranges - GFR Blood specimen (specimen) 01/08/2009 5:45 AM CDT 01/08/2009 6:27 AM CDT us Rodolfo Smith MD CHEMISTRY ORDERABLES Edited INTERFACE SYSTEM Refer to clinic/hospital department [facility] CLIA# [id number] [address] [place] [address] * (ABNORMAL) CBC WITH DIFFERENTIAL (01/08/2009 5:45 AM CDT) RDW 14.1 11.5 - 14.5 % [facility] WBC 6.2 4.0 - 9.8 K/uL [facility] MCH 26.3(L) 27.2 - 32.[address] [facility] MPV 10.6 9.3 - 12.[address] [facility] HEMATOCRIT 34.9(L) 35.5 - 44.0 % [facility] RDW-STDEV 43.3 37.1 - 48.[address] [facility] RBC 4.14 3.90 - 4.90 M/uL [facility] MCHC 31.2(L) 31.5 - 35.5 % [facility] MCV 84.3 82.0 - 99.[address] [facility] PLATELETS 261 140 - 350 K/uL [facility] HEMOGLOBIN 10.9(L) 11.8 - 14.8 g/dL [facility] LYMPHOCYTES 32 16 - 45 % [facility] MONOCYTE ABSOLUTE 0.42 0.10 - 1.30 K/uL [facility] NEUTROPHILS 55 45 - 70 % [facility] NEUTROPHIL ABSOLUTE 3.41 1.90 - 7.00 K/uL [facility] BASOPHILS 0 0 - 2 % [facility] EOSINOPHIL ABSOLUTE 0.34 0.00 - 0.70 K/uL [facility] EOSINOPHILS 6 0 - 7 % [facility] LYMPHOCYTE ABSOLUTE 2.00 0.70 - 4.50 K/uL [facility] MONOCYTES 7 3 - 13 % [facility] BASOPHILS ABSOLUTE 0.01 0.00 - 0.20 K/uL [facility] Blood specimen (specimen) 01/08/2009 5:45 AM CDT 01/08/2009 6:27 AM CDT Rodolfo Smith MD HEMATOLOGY ORDERABLES Edited Performing Organization Address [facility] de Phone Number INTERFACE SYSTEM Refer to clinic/hospital department [facility] CLIA# [id number] [address] [place] [address] * (ABNORMAL) POC GLUCOSE (01/07/2009 8:16 PM CDT) GLUCOSE POC 142(H) 65 - 99 mg/dL [facility] COMMENT, GLU POC Notified RN [facility] Venous blood specimen (specimen) 01/07/2009 8:16 PM CDT 01/07/2009 8:16 PM CDT us Adalberto Jara MD POINT OF CARE TESTING Final Re sult Performing Organization Address [facility] de Phone Number INTERFACE SYSTEM Refer to clinic/hospital department [facility] CLIA# [id number] [address] [place] [address] * (ABNORMAL) POC GLUCOSE (01/07/2009 4:55 PM CDT) GLUCOSE POC 113(H) 65 - 99 mg/dL [facility] Venous blood specimen (specimen) 01/07/2009 4:55 PM CDT 01/07/2009 4:55 PM CDT Adalberto Jara MD POINT OF CARE TESTING Final Re sult Performing Organization Address City/[facility] de Phone Number INTERFACE SYSTEM Refer to clinic/hospital department [facility] CLIA# [id number] [address] [place] [address] * CARDIAC ENZYMES (01/07/2009 2:20 PM CDT) TROPONIN T <0.01 <=0.03 ng/mL [facility] TROPONIN T INTERP Negative [facility] Blood specimen (specimen) 01/07/2009 2:20 PM CDT 01/07/2009 2:27 PM CDT Filiberto Samayoa MD CHEMISTRY ORDERABLES Edited Performing Organization Address [facility] de Phone Number INTERFACE SYSTEM Refer to clinic/hospital department [facility] CLIA# [id number] [address] [place] [address] * FECAL LEUKOCYTES STAIN (01/07/2009 12:02 PM CDT) FINAL REPORT No WBC's seen. [facility] Stool specimen (specimen) 01/07/2009 12:02 PM CDT 01/07/2009 12:27 PM CDT Adalberto Jara MD MICROBIOLOGY - GENERAL ORDERAB LES Final Result Performing Organization Address City/[facility] de Phone Number INTERFACE SYSTEM Refer to clinic/hospital department [facility] CLIA# [id number] [address] [place] [address] * (ABNORMAL) POC GLUCOSE (01/07/2009 11:39 AM CDT) GLUCOSE POC 148(H) 65 - 99 mg/dL [facility] Venous blood specimen (specimen) 01/07/2009 11:39 AM CDT 01/07/2009 11:39 AM CDT Adalberto Jara MD POINT OF CARE TESTING Final Re sult Performing Organization Address [facility] de Phone Number INTERFACE SYSTEM Refer to clinic/hospital department [facility] CLIA# [id number] [address] [place] [address] * (ABNORMAL) C-REACTIVE PROTEIN (01/07/2009 8:16 AM CDT) [facility] CRP 3.0(H) 0.0 - 0.8 mg/dL [facility] Blood specimen (specimen) 01/07/2009 8:16 AM CDT 01/07/2009 8:16 AM CDT Narrative INTERFACE SYSTEM - 01/07/2009 8:33 AM CDT Add to blood in lab. Adalberto Jara MD CHEMISTRY ORDERABLES Final Res ult Performing Organization Address [facility] de Phone Number INTERFACE SYSTEM Refer to clinic/hospital department [facility] CLIA# [id number] [address] [place] [address] * (ABNORMAL) CBC WITH DIFFERENTIAL (01/07/2009 5:50 AM CDT) [facility] HEMOGLOBIN 11.3(L) 11.8 - 14.8 g/dL [facility] RDW 14.2 11.5 - 14.5 % [facility] WBC 7.5 4.0 - 9.8 K/uL [facility] MCH 27.1(L) 27.2 - 32.[address] [facility] MPV 10.4 9.3 - 12.[address] [facility] HEMATOCRIT 35.1(L) 35.5 - 44.0 % [facility] RDW-STDEV 44.0 37.1 - 48.[address] [facility] RBC 4.17 3.90 - 4.90 M/uL [facility] MCHC 32.2 31.5 - 35.5 % [facility] MCV 84.2 82.0 - 99.[address] [facility] PLATELETS 286 140 - 350 K/uL [facility] EOSINOPHIL ABSOLUTE 0.38 0.00 - 0.70 K/uL [facility] LYMPHOCYTES 27 16 - 45 % [facility] LYMPHOCYTE ABSOLUTE 2.01 0.70 - 4.50 K/uL [facility] BASOPHILS 0 0 - 2 % [facility] BASOPHILS ABSOLUTE 0.01 0.00 - 0.20 K/uL [facility] MONOCYTES 6 3 - 13 % [facility] MONOCYTE ABSOLUTE 0.41 0.10 - 1.30 K/uL [facility] NEUTROPHILS 63 45 - 70 % [facility] NEUTROPHIL ABSOLUTE 4.70 1.90 - 7.00 K/uL [facility] EOSINOPHILS 5 0 - 7 % [facility] Blood specimen (specimen) 01/07/2009 5:50 AM CDT 01/07/2009 6:15 AM CDT us Adalberto Jara MD HEMATOLOGY ORDERABLES Edited INTERFACE SYSTEM Refer to clinic/hospital department [facility] CLIA# [id number] [address] [place] [address] * (ABNORMAL) BASIC METABOLIC PANEL (01/07/2009 5:50 AM CDT) CHLORIDE 105 96 - 108 mmol/L [facility] GLUCOSE 131(H) 65 - 99 mg/dL [facility] SODIUM 138 135 - 145 mmol/L [facility] CALCIUM 8.5(L) 8.6 - 10.2 mg/dL [facility] CO2 24 22 - 30 mmol/L [facility] CREATININE 0.49(L) 0.51 - 0.95 mg/dL [facility] POTASSIUM 3.4(L) 3.5 - 4.9 mmol/L [facility] BUN 5(L) 6 - 20 mg/dL [facility] GFR, >60 >=60 mL/min/1. [address] [facility] GFR >60 >=60 mL/min/1. [address] [facility] Comment: Modification of Diet in Renal Disease (MDRD) study formula. Estimated GFR rate interpretative information for both Americans and non- Americans is available on the [facility] Intranet at: [email or web address] Select: Lab Policies and Procedures Select: Reference Ranges - GFR Blood specimen (specimen) 01/07/2009 5:50 AM CDT 01/07/2009 6:15 AM CDT Adalberto Jara MD CHEMISTRY ORDERABLES Edited INTERFACE SYSTEM Refer to clinic/hospital department [facility] CLIA# [id number] [address] [place] [address] * (ABNORMAL) POC GLUCOSE (01/07/2009 4:57 AM CDT) COMMENT, GLU POC Notified RN [facility] GLUCOSE POC 140(H) 65 - 99 mg/dL [facility] Venous blood specimen (specimen) 01/07/2009 4:57 AM CDT 01/07/2009 4:57 AM CDT Adalberto Jara MD POINT OF CARE TESTING Final Re sult Performing Organization Address [facility] de Phone Number INTERFACE SYSTEM Refer to clinic/hospital department [facility] CLIA# [id number] [address] [place] [address] * (ABNORMAL) POC GLUCOSE (01/07/2009 1:12 AM MANUFACTURING TECHNICIAN) COMMENT, GLU POC Notified RN [facility] GLUCOSE POC 111(H) 65 - 99 mg/dL [facility] Venous blood specimen (specimen) 01/07/2009 1:12 AM MANUFACTURING TECHNICIAN 01/07/2009 1:12 AM MANUFACTURING TECHNICIAN Adalberto Jara MD POINT OF CARE TESTING Final Re sult Performing Organization Address [facility] de Phone Number INTERFACE SYSTEM Refer to clinic/hospital department [facility] CLIA# [id number] [address] [place] [address] * CLOSTRIDIUM DIFFICILE TOXIN (01/06/2009 11:55 PM MANUFACTURING TECHNICIAN) FINAL REPORT NO Clostridium difficile Toxin A or B detected by EIA. A negative result does not rule out C. difficile associated diarrhea or colitis. [facility] Stool specimen (specimen) 01/06/2009 11:55 PM MANUFACTURING TECHNICIAN 01/07/2009 12:13 AM MANUFACTURING TECHNICIAN Christiano Antunez Jr., MD MICROBIOLOGY - GENERAL ORD ERABLES Final Result Performing Organization Address [facility] de Phone Number INTERFACE SYSTEM Refer to clinic/hospital department [facility] CLIA# [id number] [address] [place] [address] * CTA CHEST W WO CONTRAST (01/06/2009 10:49 PM MANUFACTURING TECHNICIAN) Anatomical Region Laterality Modality Chest Other 01/06/2009 10:4 9 PM MANUFACTURING TECHNICIAN Narrative 01/06/2009 11:[address] [facility] [address] [place], [place] [address] Admit Date: 01/06/2009 RANDY SNYDER Sex: F Admit Prov: ER, AUTHORIZED P Date: 1965 Primary Care Prov: CMRN: [id number] Room: ER-A SSN: [id number] IMAGING SERVICES Ordering Prov: N/A Accession Number: [id number] Interpretation CT ANGIOGRAM OF THE CHEST WITH/WITHOUT [...] 23:26 Procedure Note Anne Purcell - 01/06/2009 [facility] [address] [place], [place] [address] Admit Date: 01/06/2009 SABIHARANDY Teresa Sex: F Admit Prov: ERRENATO Date: 1965 Primary Care Prov: CMRN: [id number] [facility]: [id number] IMAGING SERVICES Ordering Prov: N/A Interpretation CT [...] Resu lt * LIPASE (01/06/2009 8:45 PM MANUFACTURING TECHNICIAN) LIPASE 22 13 - 60 U/L [facility] Blood specimen (specimen) 01/06/2009 8:45 PM MANUFACTURING TECHNICIAN 01/06/2009 9:27 PM MANUFACTURING TECHNICIAN Christiano Antunez Jr., MD CHEMISTRY ORDERABLES Final Result INTERFACE SYSTEM Refer to clinic/hospital department [facility] CLIA# [id number] [address] [place] [address] * (ABNORMAL) COMPREHENSIVE METABOLIC PANEL (01/06/2009 8:45 PM MANUFACTURING TECHNICIAN) SODIUM 140 135 - 145 mmol/L [facility] ALKALINE PHOSPHATASE 83 35 - 104 U/L [facility] CO2 25 22 - 30 mmol/L [facility] BILIRUBIN TOTAL 0.3 0.2 - 1.0 mg/dL [facility] POTASSIUM 4.0 3.5 - 4.9 mmol/L [facility] TOTAL PROTEIN 7.3 6.3 - 8.6 g/dL [facility] GLUCOSE 99 65 - 99 mg/dL [facility] AST 23 12 - 32 U/L [facility] BUN 6 6 - 20 mg/dL [facility] CALCIUM 9.1 8.6 - 10.2 mg/dL [facility] ALBUMIN 4.2 3.4 - 4.8 g/dL [facility] CHLORIDE 104 96 - 108 mmol/L [facility] CREATININE 0.41(L) 0.51 - 0.95 mg/dL [facility] ALT 25 0 - 31 U/L [facility] GFR, >60 >=60 mL/min/1. [address] [facility] GFR >60 >=60 mL/min/1. [address] [facility] Comment: Modification of Diet in Renal Disease (MDRD) study formula. Estimated GFR rate interpretative information for both Americans and non- Americans is available on the [facility] Intranet at: [email or web address] Select: Lab Policies and Procedures Select: Reference Ranges - GFR Blood specimen (specimen) 01/06/2009 8:45 PM MANUFACTURING TECHNICIAN 01/06/2009 9:27 PM MANUFACTURING TECHNICIAN Christiano Antunez Jr., MD CHEMISTRY ORDERABLES Edite d INTERFACE SYSTEM Refer to clinic/hospital department [facility] CLIA# [id number] [address] [place] [address] * (ABNORMAL) CBC WITH DIFFERENTIAL (01/06/2009 8:45 PM MANUFACTURING TECHNICIAN) RDW 14.1 11.5 - 14.5 % [facility] RBC 4.86 3.90 - 4.90 M/uL [facility] MCH 27.6 27.2 - 32.[address] [facility] MPV 10.7 9.3 - 12.[address] [facility] HEMATOCRIT 40.8 35.5 - 44.0 % [facility] RDW-STDEV 43.3 37.1 - 48.[address] [facility] HEMOGLOBIN 13.4 11.8 - 14.8 g/dL [facility] MCHC 32.8 31.5 - 35.5 % [facility] WBC 10.8(H) 4.0 - 9.8 K/uL [facility] MCV 84.0 82.0 - 99.[address] [facility] PLATELETS 315 140 - 350 K/uL [facility] LYMPHOCYTES 21 16 - 45 % [facility] LYMPHOCYTE ABSOLUTE 2.32 0.70 - 4.50 K/uL [facility] BASOPHILS 0 0 - 2 % [facility] BASOPHILS ABSOLUTE 0.03 0.00 - 0.20 K/uL [facility] MONOCYTES 4 3 - 13 % [facility] MONOCYTE ABSOLUTE 0.48 0.10 - 1.30 K/uL [facility] NEUTROPHILS 70 45 - 70 % [facility] NEUTROPHIL ABSOLUTE 7.52(H) 1.90 - 7.00 K/uL [facility] EOSINOPHILS 4 0 - 7 % [facility] EOSINOPHIL ABSOLUTE 0.48 0.00 - 0.70 K/uL [facility] Blood specimen (specimen) 01/06/2009 8:45 PM MANUFACTURING TECHNICIAN 01/06/2009 9:31 PM MANUFACTURING TECHNICIAN us Christiano Antunez Jr., MD HEMATOLOGY ORDERABLES Edit ed Performing Organization Address [facility] de Phone Number INTERFACE SYSTEM Refer to clinic/hospital department [facility] CLIA# [id number] [address] [place] [address] * ED HOLD (01/06/2009 8:45 PM MANUFACTURING TECHNICIAN) SPECIMEN HOLD, BLOOD [address] [facility] Specimen of unknown material (specimen) 01/06/2009 8:45 PM MANUFACTURING TECHNICIAN 01/06/2009 8:54 PM MANUFACTURING TECHNICIAN Silvia Beasley MD CHEMISTRY ORDERABLES Final Resul t Performing Organization Address [facility] Phone Number INTERFACE SYSTEM Refer to clinic/hospital department [facility] CLIA# [id number] [address] [place] [address] * URINALYSIS WITH MICROSCOPIC (01/06/2009 8:45 PM MANUFACTURING TECHNICIAN) RBC UA 1 0 - 4 /HPF [facility] SPECIFIC GRAVITY UA 1.015 1.001 - 1.035 [facility] GLUCOSE UA Negative Negative [facility] BLOOD UA Negative Negative [facility] COLOR UA Yellow [facility] NITRITE UA Negative Negative [facility] EPITHELIAL CELLS, URINE 5-10 /HPF [facility] UROBILINOGEN UA <1 <=1 mg/dL [facility] PH UA 6.5 5.0 - 8.0 [facility] KETONES UA Negative Negative [facility] WBC UA 1 0 - 5 /HPF [facility] CLARITY UA Clear Clear [facility] PROTEIN UA Negative Negative [facility] BILIRUBIN UA Negative Negative [facility] LEUKOCYTE ESTERASE UA Negative Negative [facility] Urine specimen (specimen) 01/06/2009 8:45 PM MANUFACTURING TECHNICIAN 01/06/2009 8:54 PM MANUFACTURING TECHNICIAN us Silvia Beasley MD URINE ORDERABLES Final Result INTERFACE SYSTEM Refer to clinic/hospital department [facility] CLIA# [id number] [address] [facility] [address] documented in this encounter Visit Diagnoses Not on filedocumented in this encounter Additional Health Concerns Infection Onset Date Last Indicated Resolved Time R/O GI Pathogen 05/30/2025 05/30/2025 05/30/2025 6 :07 PM CDT R/O C. diff 05/30/2025 05/30/2025 05/30/2025 2:03 PM CDT documented as of this encounter Care Teams Store Clerk Cashier Relationship Specialty [place] [address] [place] [address] PCP - General Family Practice 05/30/25 documented as of this encounter
--- OUTSIDE RECORDS SUMMARY | 2025-07-10 02:21 | XMS_ITS | Patient Health Record ---
Author Organization [facility] Address [address] [facility] [address] Care Team Providers Care Animal Health Technician Name Role Phone Gila Hills Primary Care Provider Nury Pineda Unavailable [phone] Allergies No Known Allergies Reason For Referral [...] Insured Coverage Start Date Coverage End Date [address] [address] [id number] Yobany Snyder Self - patient is the insured
--- OUTSIDE RECORDS SUMMARY | 2025-07-10 02:21 | XMS_ITS | Encounter Summary ---
Author Organization [facility] Address [address] [place] [address] Care Team Providers Care Parakeet Raiser Name Role Phone Gila Hills Primary Care Provider Encounter Details Date Type Department Care Team (Late st Contact Info) Description 10/20/2019 Orders Only [address] [address] Gila Hills FNP [address] [place], [place] [address] Cough (Primary Dx) Social History Tobacco Use [...] Description 08/21/2025 1:00 PM CDT Office Visit [address] [address] Gila Hills FNP [address] [place] [address] documented as of this encounter Visit Diagnoses Diagnosis Cough- Primary documented in this encounter Additional Health Concerns Health Status Noted Date Alive and well 10/11/2019 Assessment Noted Time PHQ-9 Depression Total Score: 0 05/04/20 19 9:42 AM CDT A fall risk assessment has been complete d for the patient 10/11/2019 3:44 PM MANAGER VIDEO GAMES documented as of this encounter Care Teams Parakeet Raiser Relationship Specialty Start Date End Date Gila Hills FNP [address] [facility] [place] [address] PCP - General Family Medicine 06/17/19 documented as of this encounter
--- OUTSIDE RECORDS SUMMARY | 2025-07-10 02:21 | XMS_ITS | Encounter Summary ---
Author Organization [facility] Address [address] [place] [address] Care Team Providers Care Loader Operator/Ground Leader Name Role Phone Gila Hills AMBULANCE PARAMEDIC Primary Care Provider Encounter Details Date Type Department Care Team (Late st Contact Info) Description 04/28/2017 Telephone [facility] [address] [place], [place] [address] Bhavana Polanco MD [address] [address] Social History Tobacco Use Types [...] Description 08/21/2025 1:00 PM CDT Office Visit [facility] [address] [place] [address] Gila Hills FNP [address] [place] [address] documented as of this encounter Visit Diagnoses Not on filedocumented in this encounter Care Teams Loader Operator/Ground Leader Relationship Specialty Start Date End Date Gila Hills FNP [address] [place] [address] PCP - General Family Medicine 06/17/19 documented as of this encounter
--- OUTSIDE RECORDS SUMMARY | 2025-07-10 02:21 | XMS_ITS | Clinical Summary ---
Author Organization [facility] Address [address] [place] [address] Care Team Providers Care Linotype Machinist Apprentice Name Role Phone Gila Hills IRRIGATION SUPERVISOR Primary Care Provider [phone] Allergies Active Allergy Reactions Criticality Noted Date [...] Type Department Care Team Description 05/13/[address] [place] [address] Gila Hills, IRRIGATION SUPERVISOR Hormone replacement therapy (HRT) from Last 3 [...] Description 08/21/2025 1:00 PM CDT Office Visit [facility] [address] [place] [address] Gila Hills, [facility] [address] [place] [address] Health Maintenance Due Date Last Done Comments [...] Comments DEXA SCAN Routine 10/12/2024 2:33 PM WORKER'S COMPENSATION CLAIMS EXAMINER MAMMOGRAPHY Routine 10/12/2024 2:30 PM WORKER'S COMPENSATION CLAIMS EXAMINER THINPREP PAP SCRN W/HPV >=30YR Routine 02/14/2019 4:34 PM CDT Encounter for repeat Pap smear due to previous insuff cervical cells from Last 3 Months or Most Recently Relevant to Health Maintenance Results * DEXA SCAN (10/12/2024 2:33 PM WORKER'S COMPENSATION CLAIMS EXAMINER) Historical Provider HEALTH MAINTENANCE Final Result * HM MAMMOGRAPHY (10/12/2024 2:30 PM WORKER'S COMPENSATION CLAIMS EXAMINER) Historical Provider HEALTH MAINTENANCE Final Result * ThinPrep PAP Screen w/HPV >=30yr (02/14/2019 4:34 PM CDT) Bhavana Polanco MD LAB PATHOLOGY/CYTOLOGY MICHAEL MCKEE Final Result NON-INTERFACED LAB from Last 3 Months or Most Recently Relevant to Health Maintenance [place] [address] [place] [address] Care Teams Linotype Machinist Apprentice Relationship Specialty Start Date End Date Gila Hills FNP [address] [place] [address] PCP - General Family Medicine 06/17/19
--- OUTSIDE RECORDS SUMMARY | 2025-07-10 02:21 | XMS_ITS | Encounter Summary ---
Author Organization [facility] Address [address] [place] [address] Care Team Providers Care Change Management Director Name Role Phone Gila Hills Primary Care Provider Encounter Details Date Type Department Care Team (Late st Contact Info) Description 06/17/2019 Orders Only [address] [address] Gila Hills FNP [address] [place], [place] [address] Hordeolum, unspecified hordeolum type, unspecified laterality (Primary [...] Description 08/21/2025 1:00 PM CDT Office Visit [address] [address] Gila Hills FNP [address] [facility] [address] documented as of this encounter Visit Diagnoses Diagnosis Hordeolum, unspecified hordeolum type, unspecified laterality- Primary documented in this encounter Additional Health Concerns Health Status Noted Date Alive and well 05/04/2019 Assessment Noted Time PHQ-9 Depression Total Score: 0 05/04/20 19 9:42 AM CDT documented as of this encounter Care Teams Change Management Director Relationship Specialty Start Date End Date Gila Hills FNP [address] [place] [facility] [place] [address] PCP - General Family Medicine 06/17/19 documented as of this encounter
--- OUTSIDE RECORDS SUMMARY | 2025-07-10 02:21 | XMS_ITS | Encounter Summary ---
Author Organization [facility] Address [address] [place] [address] Care Team Providers Care Mobile Practice Lead Name Role Phone Reinier Gila Luciano [facility] Primary Care Provider [phone] Encounter Details Date Type Department Care Team (Late st Contact Info) Description 02/25/2024 Telephone [facility] [address] [place] [address] Alma Rosa Lau Social History Tobacco Use [...] - 02/25/2024 4:33 PM CDT [facility] [place] * Telephone Encounter - ABRAN Gregory - 02/25/2024 3:31 PM CDT Finish current taper. This will be 8 days total. I can send in topical triamcinolone cream to applyas well. What pharmacy? * Telephone Encounter - Alma Rosa Lau - 02/25/2024 3:23 PM CDT Patient states her original poison ady patches are glue drier operator than they were at [facility], but new patches are popping up. She says she has 4 pills of prednisone left to take. Please advise. documented in this encounter Plan of Treatment Upcoming Encounters Date Type Department Care Team (Late st Contact Info) Description 08/21/2025 1:00 PM CDT Office Visit [facility] [address] [place] [address] Gila Hills FNP [address] [place] [address] documented as of this encounter Visit Diagnoses Not on filedocumented in this encounter Additional Health Concerns Health Status Noted Date Alive and well 02/22/2024 Assessment Noted Time PHQ-9 Depression Total Score: 0 01/27/20 20 8:27 AM CDT A fall risk assessment has been complete d for the patient 02/22/2024 11:17 AM CDT documented as of this encounter Care Teams Mobile Practice Lead Relationship Specialty Start Date End Date Gila Hills FNP [address] [place] [address] PCP - General Family Medicine 06/17/19 documented as of this encounter
--- OUTSIDE RECORDS SUMMARY | 2025-07-10 02:21 | XMS_ITS | Encounter Summary ---
Author Organization [facility] Address [address] [place] [address] Care Team Providers Care Clinic Licensed Practical Nurse Name Role Phone Yadira Baptiste MD Primary Care Provider [phone] Encounter Details Date Type Department Care Team (Late st Contact Info) Description 05/13/2025 Results Follow-Up [facility] Clinical Decision Unit [address] [place] [address] Silvia Layne PA-C [address] [facility] [address] URINE CULTURE Social History Tobacco Use Types Packs/Day Years Used Date Smoking Tobacco: Never Feeling Safe Answer Date Recorded Are you in a relationship wi th someone who hurts you emotionally and/or physically? 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 Gender Identity Not on file Sexual [...] Info) Description 07/25/2025 1:00 PM CDT Appointment [facility] [address] [place] [address] Ramesh Dumas MD [address] [place] [address] 07/25/2025 2:00 PM CDT Office Visit [facility] [address] [place] [address] Ramesh Dumas MD [address] [place] [address] documented as of this encounter Visit Diagnoses Not on filedocumented in this encounter Additional Health Concerns Infection Onset Date Last Indicated Resolved Time R/O GI Pathogen 05/30/2025 05/30/2025 05/30/2025 6 :07 PM CDT R/O C. diff 05/30/2025 05/30/2025 05/30/2025 2:03 PM CDT documented as of this encounter Care Teams Clinic Licensed Practical Nurse Relationship Specialty Start Date End Date Yadira Baptiste MD [address] [place] [address] PCP - General Family Practice 05/30/25 documented as of this encounter
--- NOTE | 2025-07-10 07:17 | WPDHPUPDATE1 ---
History and Physical Update Update Date/Time: 07/10/25 07:17 History and Physical has been reviewed, including an updated exam of the patient. There are NO changes in the patient's condition. Risks, benefits, and alternatives have been discussed and questions answered. Patient agrees to proceed with procedure.
--- NOTE | 2025-07-10 10:51 | WPDANESEPPF ---
Anes - Initial Pre Proc Eval Procedure: Operation Date: 07/10/25 12:00 Proposed Procedures p Robotic Sacrocolpopexy, Urethral Sling - Axel Stahl MD Date/Time: 07/10/25 10:51 Surgeon: Axel Stahl MD Pre Op Diagnosis: uterine prolapse, cystocele, stress incont Patient Data Age: 60 Gender: F Height: 1.73 m Weight: 84.2 kg Last Vital Signs Temp 98.2 F 06/26/25 13:54 Pulse 60 06/26/25 13:54 Resp 18 06/26/25 13:54 BP 119/70 06/26/25 13:54 Pulse Ox 99 06/26/25 13:54 O2 Del Method Room Air 06/26/25 13:54 Allergies Allergy/AdvReac Type Severity Reaction Status Date / Time doxycycline Allergy Severe Diarrhea Verified 06/26/25 13:09 adhesive tape Allergy rash Verified 06/26/25 13:07 ciprofloxacin (From Cipro) Allergy Abdominal Verified 06/26/25 13:07 Pain Home Medications ?Medication ?Instructions ?Recorded ?Confirmed ?Type Lactobacillus acidophilus 10 mg PO DAILY 06/19/25 06/26/25 History (Acidophilus capsule) estradiol 1 mg tablet 1.5 mg PO DAILY 06/19/25 06/26/25 History levothyroxine 100 mcg capsule 100 mcg PO DAILY 06/19/25 06/26/25 History montelukast 10 mg tablet 10 mg PO DAILY 06/19/25 06/26/25 History MULTIVITAMIN IRON FREE 1 mg BYMOUTH DAILY 06/26/25 06/26/25 History colestipol 1 gram tablet 1 g PO BID 06/26/25 06/26/25 History peg 400-propylene glycol 0.4 %-0.3 1 drp EACH EYE BID PRN dry eye(s) 06/26/25 06/26/25 History % eye drops (Systane Ultra) Patient hx anesthesia problems: none Family hx anesthesia problems: none Results Review: All pre-operative results and documents have been reviewed as part of the pre-operative evaluation. [facility] Past Medical History Medical History Irritable bowel syndrome Diverticulitis Hyperthyroidism Surgical History Surgical History History of cholecystectomy Gastric bypass status for obesity H/O: hysterectomy Family History Family History Father Carcinoma of colon Mother Cerebrovascular accident Other Cancer Hypertension Social History Social History Smoking status: Never smoker Alcohol intake: current Alcohol use details: occasional Substance use: never Substance use type: does not use Do You Feel Safe in your Home?: Yes Lack of Transportation: No Lack of Food: Never True Current Housing: Decline to Answer Concerned About Future Housing: Decline to Answer Difficulty Paying Gas/Electric Bills: Decline to Answer Difficulty Paying for Meds: Decline to Answer Currently Unemployed: Decline to Answer Education: Decline to Answer Difficulty w/ Childcare or Family Care: Decline to Answer Living arrangements: with family Spiritual care concerns: No Anes - Eval Final PreProcedure Day of Procedure 07/10/25 10:51 Patient weight: normal Heart: regular rate and rhythm Lungs: clear to auscultation Airway: Mallampati scale class II Neurological: alert and oriented Last oral intake: >/= 8 hours ASA classification: II Emergent: no Anesthetic plan: proceed Anesthesia type and monitoring: general ETT and standard monitoring Results Review: All pre-operative results and documents have been reviewed as part of the pre-operative evaluation. Informed Consent: The patient's anesthetic plan and its attendant risks and benefits were discussed with the patient/family/POA. Questions were solicited and answers provided to the satisfaction of the patient/family/POA.
[2025-07-10] MEDS: LACTATED RINGERS 1,000 ML 30 ML IV CONT ×3 (11:00→16:27)
[2025-07-10] MEDS: ceFAZolin 2 GM in SODIUM CHLORIDE 0.9% IV 50 ML 100 ML IVPB (11:35)
[2025-07-10] MEDS: BUPIVACAINE/EPINEPHRINE 0.5% 50 ML VIAL 40 ML INFILTRATE (12:02)
[2025-07-10] MEDS: KETOROLAC 30 MG/ML VIAL (*BKC) IV PUSH (13:50)
--- NOTE | 2025-07-10 14:30 | P.OP_ITS ---
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 She desires surgical correction. She understands risks of bleeding, infection, diskitis, damage to surrounding organs, damage to the bowel or urinary tract, recurrence of prolapse, dyspareunia, vaginal mesh exposure, urinary tract mesh exposure, obstructive voiding requiring secondary procedure, hip and leg pain, and other perioperative intraoperative and postoperative complications. She is to proceed Findings See below Description of Procedure She was correctly identified. Informed consent obtained. She is brought to the operating room. She was given general anesthesia. She was placed in the lithotomy position. She was given appropriate perioperative antibiotics. She was prepped and draped in a sterile fashion. A time-out performed. I anesthetized the skin 3 fingerbreadths cephalad to the umbilicus. I incised the skin. I located the fascia. I grasped the fascia with Vicente clamps. I incised the fascia sharply and a Garcia type technique. I placed Vicryl sutures for later fascial closure. I placed a midline trocar. Under direct vision placed 2 additional trocars in the right upper quadrant and 2 additional trocars in the left upper quadrant. There was some wispy adhesions in the right upper quadrant. These were taken down sharply. Cautery was not required. I took great care not to injure any underlying organs. She was placed in steep Trendelenburg. The robot was docked. I sat at the console. With the Sizer in the vagina and created a plane on the anterior and posterior vaginal wall for several cm taking great care not to injure the vagina, bladder, or rectum. It was intensely scarred on the anterior vaginal wall. No scarring is present on the posterior vaginal wall. Took great care not to injure the vagina, bladder, or rectum. I introduced the mesh into the vagina. I sewed the anterior leaflet of mesh on the anterior vaginal wall and posterior leaf of the mesh on the posterior vaginal wall with several sutures of 2 0 [place]-Onur taking great care not to go through and through. I then opened up the peritoneum over the sacral promontory. I carried this incision into the cul-de-sac. I freed up the edges for later retroperitonealization of the mesh. I located the anterior longitudinal ligament of the sacrum. I cleaned off any fatty tissues. I then tensioned my mesh appropriately. I did a vaginal exam to ensure prolapse reduction without undue tension. I then sewed the proximal leaflet of mesh onto the ligament with several sutures of 2 0 [place]-Onur. I then used a 2 0 Monocryl to meticulously retroperitonealized all mesh. I allowed the colon to go back into its normal anatomic location. There is no sign of impingement. He had an was then exited. Fascial sutures were closed. The wounds were all irrigated and closed with 4 O Monocryl and skin glue. She was then repositioned and prepped for urethral sling. I marked out the inner thigh incisions. I anesthetized the skin and made those incisions. I then anesthetized the anterior vaginal wall over the mid urethra. I made a 1 cm incision. I dissected out laterally taking great care not to injure the urethra vaginal wall. I passed the helical trocars. I did this 1st on the left than on the right from the thigh incision towards the vaginal incision. Sling was connected to the trocars and brought out through the thigh incision. I tensioned the sling appropriately. I cut and removed the plastic sleeves. I then performed cystoscopy. The bladder showed no evidence of surgical artifact or tumor. Both ureters were seen to excrete clear yellow urine. I cut the excess sling material. I closed incisions with glue. She was awakened and transferred to the PACU in stable condition. Implants Sacral colpopexy mesh Urethral sling Estimated Blood Loss 20 Packing No Pathology None sent Complications No immediate complications Condition Stable Disposition PACU
[2025-07-10] MEDS: fentaNYL CITRATE INJ (*CRX) 100 MCG/2 ML VIAL 25 MCG IV PUSH ×4 (15:10→15:18)
[2025-07-10] MEDS: ONDANSETRON INJ 4 MG/2 ML VIAL IV PUSH (15:12)
[2025-07-10] MEDS: oxyCODONE HCL (*CRX) 5 MG TAB IR PO (16:30)
--- NOTE | 2025-07-10 17:43 | SUR.PHASEII ---
1730: unable to void at this time.
== END 2025-07-10 18:20 | disposition home or self-care (01) ==
PROVIDERS: PCP Family Medicine; Visit Provider Urology
PROC: (CPT 57425; principal; 2025-07-10 12:00)
DX: N99.3 Prolapse of vaginal vault after hysterectomy (principal); N39.3 Stress incontinence (female) (male)
CPT/HCPCS: 57425; 57288; S2900; 36415; 86850; 86900; 86901; J0690; A9270; C1771; C1781; J1100; J1200; J1885; J2003; J2250; J2405; J2704; J3010; J7030; J7120